=== PATIENT | female | born 1945 | race Caucasian/White ===

== ENCOUNTER 2016-08-22 09:47 | Inpatient (IN) | payer OTHER, MEDICARE ==
[~2016-08-22] VITALS: Ht 157.5 cm; Wt 51.0 kg
[~2016-08-22 09:47] MED LIST: CALC1TAB26 PO; CYAN1000P IM; D32000CA PO; MAGN400T PO; METO25CR PO; PHEN100 PO; POTA-267 PO; ST J81CH PO
[2016-08-22 09:49] VITALS: BP 134/97; PULSE 101; RESP 15; TEMP 97.8; O2SAT 98
[2016-08-22] MEDS ORDERED: PANTOPRAZOLE SODIUM 40 MG VIAL IVP ONE (10:45)
[2016-08-22] MEDS ORDERED: MORPHINE SULFATE 4 MG/ML INJ IV PUSH ONE (10:45)
[2016-08-22] MEDS ORDERED: ONDANSETRON HCL 4 MG/2 ML VIAL IVP ONE (10:45)
[2016-08-22] MEDS: SODIUM CHLOR 0.9% 1000 ML INJ 1,000 ML IV SCH ×3 (11:00→17:00)
[2016-08-22 11:03] VITALS: RESP 18; O2SAT 98
[2016-08-22 11:10] LABS: AUTOMATED NEUTROPHIL # 5.6 TH/MM3 (1.8-7.7); BASOPHIL % 0.4 % (0.0-2.0); EOSINOPHIL % 0.5 % (0.0-4.0); HEMATOCRIT 36.4 % (35.0-46.0); HEMO FLAGS DIFF FINAL; LYMPH % 26.7 % (9.0-44.0); LYMPHOCYTE # 2.3 TH/MM3 (1.0-4.8); MEAN CELL VOLUME 99.1 FL (80.0-100.0); MEAN CORPUSCULAR HEMOGLOBIN 32.6 PG (27.0-34.0); MEAN CORPUSCULAR HGB CONC 32.8 % (32.0-36.0); MONO % 6.5 % (0.0-8.0); NEUT % 65.9 % (16.0-70.0); PLATELET COUNT 367 TH/MM3 (150-450); RED BLOOD COUNT 3.67 MIL/MM3 (4.00-5.30); RED CELL DISTRIBUTION WIDTH 14.5 % (11.6-17.2); WHITE BLOOD COUNT 8.5 TH/MM3 (4.0-11.0)
[2016-08-22 12:00] LABS: PROTHROMBIN TIME - PATIENT 10.6 SEC (9.8-11.6)
[2016-08-22 12:04] LABS: APTT (PATIENT) 27.1 SEC (24.3-30.1)
[2016-08-22 12:07] LABS: BLOOD, URINE NEG (NEG); GLUCOSE,URINE NEG (NEG); KETONE, URINE NEG (NEG); NITRITE,URINE NEG (NEG); URINE COLOR LIGHT-YELLOW (YELLW/STRAW)
[2016-08-22 12:08] LABS: COMMENT (UR) CULT NOT INDICATED; CULTURE IF INDICATED CULT NOT INDICATED
[2016-08-22 12:17] LABS: ALKALINE PHOSPHATASE 89 U/L (45-117)
[2016-08-22 13:31] LABS: TOTAL BILIRUBIN ADULT 0.4 MG/DL (0.2-1.0)
[2016-08-22 13:36] LABS: ALT (GPT) 13 U/L (10-53); AST (GOT) 37 U/L (15-37); BLOOD UREA NITROGEN 12 MG/DL (7-18); CHLORIDE 110 MEQ/L (98-107); GLOMERULAR FILTRATION RATE 66 ML/MIN (>89); SODIUM (NA) 142 MEQ/L (136-145)
[2016-08-22 13:37] LABS: POTASSIUM 5.6 MEQ/L (3.5-5.1)
[2016-08-22 14:22] VITALS: BP 101/59; PULSE 93; RESP 18; O2SAT 95
[2016-08-22 14:27] LABS: ANION GAP 9 MEQ/L (5-15)
[2016-08-22] MEDS ORDERED: IOHEXOL 350 MG/ML 10 ML VIAL (for RAD DIAG) IV ONE (14:42)
--- NOTE | 2016-08-22 14:55 | RADRPT ---
EXAM DATE/TIME: 08/22/2016 14:28 [place] COMPARISON: CHEST SINGLE AP, February 18, 2015, 16:58. INDICATIONS : Diffuse abdominal pain. History of adrenal mass. IV CONTRAST: 93 cc Omnipaque 350 (iohexol) ORAL CONTRAST: Prescribed oral contrast ingested. RADIATION DOSE: 7.70 CTDIvol (mGy) MEDICAL HISTORY : None SURGICAL HISTORY : Hysterectomy. Cholecystectomy. ENCOUNTER: Initial ACUITY: 3 days PAIN SCALE: 8/10 LOCATION: Bilateral lower quadrant TECHNIQUE: Volumetric scanning of the abdomen and pelvis was performed. Using automated exposure control and ad justment of the mA and/or kV according to patient size, radiation dose was kept as low as reasonably achievable to obtain optimal diagnostic quality images. FINDINGS: LOWER LUNGS: Left lower lobe medial opacity. Small left pleural effusion. LIVER: Homogeneous density without lesion. There is no dilation of the biliary tree. No calcified gallston es. SPLEEN: Normal size without lesion. PANCREAS: Within normal limits. KIDNEYS: Normal in size and shape. There is no mass, stone or hydronephrosis. Multiple low-density renal lesi ons greater than left likely cysts. ADRENAL GLANDS: 2.2 x 1.7 cm left adrenal mass. Right adrenal gland normal. VASCULAR: There is no aortic aneurysm. BOWEL/MESENTERY: Evidence of previous bowel surgery. There is wall thickening involving bowel loops. Transverse colon. There is also mild wall thickening within descending and sigmoid colon. No perforation or significan t inflammatory changes. There is no free intraperitoneal air or fluid. ABDOMINAL WALL: Within normal limits. RETROPERITONEUM: There is no lymphadenopathy. BLADDER: No wall thickening or mass. REPRODUCTIVE: Within normal limits. Uterus not seen. INGUINAL: There is no lymphadenopathy or hernia. MUSCULOSKELETAL: Within normal limits for patient age. CONCLUSION: 1. Left basilar density and small left pleural effusion. 2. Left adrenal mass measures 2.2 x 1.7 cm cannot be classified as a typical adrenal adenoma. 3. Wall thickening throughout the colon likely colitis. Evidence of previous bowel surgery. 1. Shay Yao MD on August 22, 2016 at 14:49 Board Certified Radiologist. This report was verified electronically.
--- NOTE | 2016-08-22 15:47 | PD ---
HPI Chief Complaint: Abdominal Pain Time Seen by Provider: 10:28 Travel History International Travel<30 days: No Contact w/Intl Traveler<30days: No Traveled to known affect area: No History of Present Illness HPI 71-year-old female complains of abdominal pain. Patient states that the pain started 4 days ago. Patient states that the pain is sharp and constant pain diffuse over the abdomen. Patient denies any pain radiation. Patient denies any nausea vomiting diarrhea. Patient denies any dysuria or frequency. Patient denies any fever chills. Patient has history of metastatic non-small cell lung CA. Patient receive radiation and chemotherapy in 2013. Patient developed brain metastasis right parietal region which was resected and postop SRS therapy in 2014. Patient was found to have new enlarged left adrenal gland recently and had a PET scan done. Patient also developed seizure and on Dilantin. Patient status post coronary resection secondary to Crohn's disease and hysterectomy. PFSH Past Medical History Cancer: Yes (LUNG) Cardiovascular Problems: Yes (IRREGULAR HEART BEAT) Chemotherapy: Yes Diabetes: No Endocrine: No Gastrointestinal Disorders: Yes (HX OF CHRON'S DISEASE) Genitourinary: No Hepatitis: No Hiatal Hernia: No Immune Disorder: No Implanted Vascular Access Dvce: Yes (POWER PORT) Medical other: Yes (ANEMIA) Musculoskeletal: Yes (SOME MINOR BACK PROBLEMS, ARTHRITIS IN HANDS) Neurologic: No Psychiatric: No Reproductive: No Respiratory: Yes (RECENT PNEUMOTHORAX 01/2013,PNEUMOTHORAX 1979 CENTRAL LINE INSERTION.) Immunizations Current: Yes (TELEPHONE INTERVIEW) Seizures: Yes (1ST SEIZURE YESTERDAY) Thyroid Disease: No Tetanus Vaccination: < 5 Years Past Surgical History Abdominal Surgery: Yes (PARTIAL COLECTOMY X 2(1977, 1979), REPAIR COLAPSED COLON 1987) Body Medical Devices: DENTAL IMPLANTS X 3 Eye Surgery: Yes (CATARACT BILATERAL 2011, 2012,MACULAR HOLE REPAIRED R EYE 2012) Gynecologic Surgery: Yes (HYSTERECTOMY) Hysterectomy: Yes Joint Replacement: No Neurologic Surgery: Yes (BRAIN TUMOR REMOVED 02/2015) Pacemaker: No Other Surgery: Yes Social History Alcohol Use: No Tobacco Use: No Substance Use: No Allergies-Medications (Allergen,Severity, Reaction): Coded Allergies: Penicillin (Unverified Allergy, Severe, SWELLING, 08/22/16) Reported Meds & Prescriptions Reported Meds & Active Scripts Active Dilantin 100 Mg Kapseals (Phenytoin Sodium) 100 Mg Caper 100 Mg PO Q8HR Reported Aspirin 81 mg chewable (Aspirin) 81 Mg Chw 81 Mg PO DAILY D3 (Cholecalciferol) 2,000 Unit Cap 2,000 Unit PO DAILY Calcium 600+D3 (Calcium Carbonate-Vitamin D) 1 Tab Tab 1 Tab PO Metoprolol Succinate ER 25 mg (Metoprolol Succinate) 25 Mg Tab 25 Mg PO DAILY Vitamin B12 (Cyanocobalamin) 1,000 Mcg/Ml Inj 1,200 Mcg IM Klor-Con 10 (Potassium Chloride) 10 Meq Tab 10 Meq PO Mag-Ox 400 (Magnesium Oxide) 400 Mg Tab 400 Mg PO DAILY 30 Days Review of Systems General / Constitutional: No: Fever Eyes: No: Visual changes HENT: No: Headaches Cardiovascular: No: Chest Pain or Discomfort Respiratory: No: Shortness of Breath Gastrointestinal: Positive: Abdominal Pain Genitourinary: No: Dysuria Musculoskeletal: No: Pain Skin: No Rash Neurologic: No: Weakness Psychiatric: No: Depression Endocrine: No: Polydipsia Hematologic/Lymphatic: No: Easy Bruising Physical Exam Narrative GENERAL: Well-nourished, well-developed patient. SKIN: Warm and dry. HEAD: Normocephalic. EYES: No scleral icterus. No injection or drainage. NECK: Supple, trachea midline. No JVD or lymphadenopathy. CARDIOVASCULAR: Regular rate and rhythm without murmurs, gallops, or rubs. RESPIRATORY: Breath sounds equal bilaterally. No accessory muscle use. GASTROINTESTINAL: Abdomen soft, nondistended. Patient has moderate diffuse tenderness over the abdomen. No rebound tenderness. No mass. MUSCULOSKELETAL: No cyanosis, or edema. BACK: Nontender without obvious deformity. No CVA tenderness. Neurologic exam normal. Data Data Last Documented VS Vital Signs Date Time Temp Pulse Resp B/P Pulse Ox O2 Delivery O2 Flow Rate FiO2 08/22/16 14:22 93 18 101/59 95 Room Air 08/22/16 09:49 97.8 Orders Complete Blood Count With Diff (08/22/16 10:35) Comprehensive Metabolic Panel (08/22/16 10:35) Lipase (08/22/16 10:35) Prothrombin Time / Inr (Pt) (08/22/16 10:35) Act Partial Throm Time (Ptt) (08/22/16 10:35) Urinalysis - C+S If Indicated (08/22/16 10:35) Ct Abd/Pel W Iv Contrast(Rout) (08/22/16 10:35) Iv Access Insert/Monitor (08/22/16 10:35) Ecg Monitoring (08/22/16 10:35) Oximetry (08/22/16 10:35) Morphine Inj (Morphine Inj) (08/22/16 10:45) Ondansetron Inj (Zofran Inj) (08/22/16 10:45) Pantoprazole Inj (Protonix Inj) (08/22/16 10:45) Sodium Chlor 0.9% 1000 Ml Inj (Ns 1000 M (08/22/16 10:35) Iohexol 350 Inj (Omnipaque 350 Inj) (08/22/16 14:42) Labs Laboratory Tests Test 08/22/16 08/22/16 08/22/16 08/22/16 10:12 11:32 11:55 12:45 White Blood Count 8.5 TH/MM3 Red Blood Count 3.67 MIL/MM3 Hemoglobin 11.9 GM/DL Hematocrit 36.4 % Mean Corpuscular Volume 99.1 FL Mean Corpuscular Hemoglobin 32.6 PG Mean Corpuscular Hemoglobin 32.8 % Concent Red Cell Distribution Width 14.5 % Platelet Count 367 TH/MM3 Mean Platelet Volume 8.1 FL Neutrophils (%) (Auto) 65.9 % Lymphocytes (%) (Auto) 26.7 % Monocytes (%) (Auto) 6.5 % Eosinophils (%) (Auto) 0.5 % Basophils (%) (Auto) 0.4 % Neutrophils # (Auto) 5.6 TH/MM3 Lymphocytes # (Auto) 2.3 TH/MM3 Monocytes # (Auto) 0.6 TH/MM3 Eosinophils # (Auto) 0.0 TH/MM3 Basophils # (Auto) 0.0 TH/MM3 CBC Comment DIFF FINAL Differential Comment Prothrombin Time 10.6 SEC Prothromb Time International 1.0 RATIO Ratio Activated Partial 27.1 SEC Thromboplast Time Urine Color LIGHT-YELLOW Urine Turbidity CLEAR Urine pH 5.0 Urine Specific [place] 1.007 Urine Protein NEG mg/dL Urine Glucose (UA) NEG mg/dL Urine Ketones NEG mg/dL Urine Occult Blood NEG Urine Nitrite NEG Urine Bilirubin NEG Urine Urobilinogen LESS THAN 2.0 MG/DL Urine Leukocyte Esterase NEG Urine RBC LESS THAN 1 /hpf Urine WBC LESS THAN 1 /hpf Microscopic Urinalysis Comment CULT NOT INDICATED Sodium Level 142 MEQ/L Potassium Level 5.6 MEQ/L Chloride Level 110 MEQ/L Carbon Dioxide Level 23.0 MEQ/L Anion Gap 9 MEQ/L Blood Urea Nitrogen 12 MG/DL Creatinine 0.84 MG/DL Estimat Glomerular Filtration 66 ML/MIN Rate Random Glucose 77 MG/DL Calcium Level 8.3 MG/DL Total Bilirubin 0.4 MG/DL Aspartate Amino Transf 37 U/L (AST/SGOT) Alanine Aminotransferase 13 U/L (ALT/SGPT) Alkaline Phosphatase 89 U/L Total Protein 6.6 GM/DL Albumin 3.0 GM/DL Lipase 87 U/L [facility] Medical Decision Making Medical Screen Exam Complete: Yes Emergency Medical Condition: Yes Interpretation(s) [address] scan abdomen pelvis shows left basilar density and small left pleural effusion. Left adrenal mass. Wall thickening throughout the colon likely colitis. CBC within normal limit. CMP with potassium high 0.6. Hemolyzed specimen. UA is negative. Differential Diagnosis Differential diagnosis including gastritis, PUD, appendicitis, cholecystitis, colitis, UTI, pyelonephritis, nephrolithiasis. Narrative Course 71-year-old female with abdominal pain. History of metastatic lung cancer. History of left adrenal mass. Normal saline solution 100 cc an hour. Levaquin 750 mg IV. Flagyl 500 mg IV. Diagnosis Primary Impression: Colitis Additional Impressions: Adrenal mass, left Metastatic lung cancer (metastasis from lung to other site) Qualified Code: C34.90 - Metastatic lung cancer (metastasis from lung to other site), unspecified laterality Admitting Information Admitting Physician Requests: Admit Salvador Gale MD Aug 22, 2016 15:47
[2016-08-22 15:59] VITALS: BP 102/60; PULSE 93; RESP 18; O2SAT 95
[2016-08-22] MEDS ORDERED: LEVOFLOXACIN 750 MG PREMIX INJ 150 ML IV ONE (16:00)
[2016-08-22] MEDS ORDERED: metroNIDAZOLE 500 MG INJ 100 ML IV ONE (16:00)
[2016-08-22] MEDS ORDERED: ACETAMINOPHEN 325 MG TAB PO PRN (16:15)
[2016-08-22] MEDS ORDERED: ONDANSETRON HCL 4 MG/2 ML VIAL IV PUSH PRN (16:15)
[2016-08-22] MEDS ORDERED: ACETAMINOPHEN/HYDROcodone 325 MG/5 MG TAB PO PRN ×2 (16:45)
[2016-08-22] MEDS ORDERED: HYDROmorphone HCL PF 1 MG/ML VIAL IV PUSH PRN (16:45)
--- NOTE | 2016-08-22 16:49 | HHI.HP ---
[facility] Greg Dickinson MD Admission Diagnosis colitis. Adrenal mass. Metastatic lung CA. Diagnoses: (1) Colitis Diagnosis: Principal Chief Complaint: abdominal pain Travel History International Travel<30 Days: No Contact w/Intl Traveler <30 Da: No Traveled to Known Affected Are: No History of Present Illness patient is a pleasant 71 y/o female who presented to ER with abdominal pain. she says that the pain started tow-three weeks ago and gradually got worse to the extent that she decided to come to ER. pain is more or less generalized although it's more prominent in RLQ. she denies fever, chills , nausea or vomiting. she has diarrhea but she says that ' this is normal'. of note she underwent combined radiation treatment and chemotherapy for a non-small cell lung cancer being completed in July of 2013. 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 This was resected .she was found to have an adrenal mass in recent PET scan for which she's being followed up by her radiation oncology. Review of Systems Constitutional: DENIES: Fever, Weight loss, Chills, Night Sweats Eyes: DENIES: Blurred vision, Diplopia, Vision loss, Double Vision Ears, nose, mouth, throat: DENIES: Tinnitus, Vertigo, Throat pain, Epistaxis Respiratory: DENIES: Apneas, Cough, Snoring, Wheezing, Hemoptysis, Sputum production, Shortness of breath Cardiovascular: DENIES: Chest pain, Palpitations, Syncope, Dyspnea on Exertion , PND, Lower Extremity Edema, Orthopnea, Claudication Gastrointestinal: COMPLAINS OF: Abdominal pain, DENIES: Black stools, Bloody stools, Constipation, Diarrhea, Nausea, Vomiting, Difficulty Swallowing, Anorexia Genitourinary: DENIES: Urinary frequency, Urgency, Hematuria, Dysuria Musculoskeletal: DENIES: Joint pain, Muscle aches, Stiffness, Joint Swelling Integumentary: DENIES: Rash Neurologic: DENIES: Abnormal gait, Headache, Localized weakness, Paresthesias, Seizures, Speech Problems, Tremor, Poor Balance Psychiatric: DENIES: Anxiety, Confusion, Mood changes, Depression, Hallucinations, Agitation, Suicidal Ideation, Homicidal Ideation, Delusions Past Family Social History Past Medical History Crohn's disease lung cancer with brain/ adrenal mets Past Surgical History colon resection hysterectomy eye surgery Reported Medications Aspirin 81 mg chewable (Aspirin) 81 Mg Chw 81 Mg PO DAILY D3 (Cholecalciferol) 2,000 Unit Cap 2,000 Unit PO DAILY Calcium 600+D3 (Calcium Carbonate-Vitamin D) 1 Tab Tab 1 Tab PO Metoprolol Succinate ER 25 mg (Metoprolol Succinate) 25 Mg Tab 25 Mg PO DAILY Vitamin B12 (Cyanocobalamin) 1,000 Mcg/Ml Inj 1,200 Mcg IM Klor-Con 10 (Potassium Chloride) 10 Meq Tab 10 Meq PO Mag-Ox 400 (Magnesium Oxide) 400 Mg Tab 400 Mg PO DAILY 30 Days Allergies: Coded Allergies: Penicillin (Unverified Allergy, Severe, SWELLING, 08/22/16) Active Ordered Medications Current Medications Morphine Sulfate (Morphine Inj) 2 mg ONCE ONCE IV PUSH Last administered on 11:00; Start 08/22/16 at 10:45; Stop 08/22/16 at 10:46; Status DC Ondansetron HCl (Zofran Inj) 4 mg ONCE ONCE IVP Last administered on 11:00; Start 08/22/16 at 10:45; Stop 08/22/16 at 10:46; Status DC Pantoprazole Sodium 40 mg 40 mg ONCE ONCE IVP Last administered on 08/22/16 11:00; Start 08/22/16 at 10:45; Stop 08/22/16 at 10:46; Status DC Sodium Chloride (NS 1000 ml Inj) 1,000 ml @ 125 mls/hr Q8H IV Last administered on 08/22/16 15:56; Start 08/22/16 at 10:35; Stop 08/22/16 at 16:06 ; Status DC Iohexol 92 ml 92 ml STK-MED ONCE IV Last administered on 08/22/16 14:42; Start 08/22/16 at 14:42; Stop 08/22/16 at 14:43; Status DC Levofloxacin/ Dextrose 150 ml @ 100 mls/hr ONCE ONCE IV Last administered on 08/22/16 15:55; Start 08/22/16 at 16:00; Stop 08/22/16 at 17:29 Metronidazole (Flagyl 500 Mg Inj) 100 ml @ 100 mls/hr ONCE ONCE IV Last administered on 08/22/16t 15:58; Start 08/22/16 at 16:00; Stop 08/22/16 at 16:59 Ondansetron HCl (Zofran Inj) 4 mg Q8HR PRN IV PUSH NAUSEA; Start 08/22/16 at 16 :15 Acetaminophen 650 mg 650 mg Q4H PRN PO FEVER; Start 08/22/16 at 16:15 Sodium Chloride (NS 1000 ml Inj) 1,000 ml @ 100 mls/hr Q10H IV ; Start at 17:00 Social History no smoking or drinking. Physical Exam Vital Signs Vital Signs Date Time Temp Pulse Resp B/P Pulse Ox O2 Delivery O2 Flow Rate FiO2 08/22/16 15:59 93 18 102/60 95 Room Air 08/22/16 14:22 93 18 101/59 95 Room Air 08/22/16 11:03 18 98 Room Air 08/22/16 09:49 97.8 101 15 134/97 98 Physical Exam GENERAL: This is a well-nourished, well-developed patient, in no apparent distress. SKIN: No rashes, ecchymoses or lesions. Cool and dry. HEAD: Atraumatic. Normocephalic. No temporal or scalp tenderness. EYES: Pupils equal round and reactive. Extraocular motions intact. No scleral icterus. No injection or drainage. ENT: Nose without bleeding, purulent drainage or septal hematoma. Throat without erythema, tonsillar hypertrophy or exudate. Uvula midline. Airway patent. NECK: Trachea midline. No JVD or lymphadenopathy. Supple, nontender, no meningeal signs. CARDIOVASCULAR: Regular rate and rhythm without murmurs, gallops, or rubs. RESPIRATORY: Clear to auscultation. Breath sounds equal bilaterally. No wheezes , rales, or rhonchi. GASTROINTESTINAL: Abdomen soft, mild RLQ tenderness, nondistended. No hepato- splenomegaly, or palpable masses. No guarding. MUSCULOSKELETAL: Extremities without clubbing, cyanosis, or edema. No joint tenderness, effusion, or edema noted. No calf tenderness. Negative Homans sign bilaterally. NEUROLOGICAL: Awake and alert. Cranial nerves II through XII intact. Motor and sensory grossly within normal limits. Five out of 5 muscle strength in all muscle groups. Normal speech. Laboratory Laboratory Tests Test 08/22/16 08/22/16 08/22/16 08/22/16 10:12 11:32 11:55 12:45 White Blood Count 8.5 Red Blood Count 3.67 Hemoglobin 11.9 Hematocrit 36.4 Mean Corpuscular Volume 99.1 Mean Corpuscular Hemoglobin 32.6 Mean Corpuscular Hemoglobin 32.8 Concent Red Cell Distribution Width 14.5 Platelet Count 367 Mean Platelet Volume 8.1 Neutrophils (%) (Auto) 65.9 Lymphocytes (%) (Auto) 26.7 Monocytes (%) (Auto) 6.5 Eosinophils (%) (Auto) 0.5 Basophils (%) (Auto) 0.4 Neutrophils # (Auto) 5.6 Lymphocytes # (Auto) 2.3 Monocytes # (Auto) 0.6 Eosinophils # (Auto) 0.0 Basophils # (Auto) 0.0 CBC Comment DIFF FINAL Differential Comment Prothrombin Time 10.6 Prothromb Time International 1.0 Ratio Activated Partial 27.1 Thromboplast Time Urine Color LIGHT-YELLOW Urine Turbidity CLEAR Urine pH 5.0 Urine Specific [place] 1.007 Urine Protein NEG Urine Glucose (UA) NEG Urine Ketones NEG Urine Occult Blood NEG Urine Nitrite NEG Urine Bilirubin NEG Urine Urobilinogen LESS THAN 2.0 Urine Leukocyte Esterase NEG Urine RBC LESS THAN 1 Urine WBC LESS THAN 1 Microscopic Urinalysis Comment CULT NOT INDICATED Sodium Level 142 Potassium Level 5.6 Chloride Level 110 Carbon Dioxide Level 23.0 Anion Gap 9 Blood Urea Nitrogen 12 Creatinine 0.84 Estimat Glomerular Filtration 66 Rate Random Glucose 77 Calcium Level 8.3 Total Bilirubin 0.4 Aspartate Amino Transf 37 (AST/SGOT) Alanine Aminotransferase 13 (ALT/SGPT) Alkaline Phosphatase 89 Total Protein 6.6 Albumin 3.0 Lipase 87 Result Diagram: 08/22/16 1012 08/22/[address] scan; left adrenal mass/ colitis Assessment and Plan Assessment and Plan A/P - colitis with history of Crohn's start on clear liquid diet- continue antibiotics and pain control- will consult colorectal surgery ( being followed up by ). -history of metastatic lung cancer with adrenal mass- being followed up by her radiation oncologist -DVT prophylaxis with SCD's Discussed Condition With ER physician and the patient. Physician Certification 2 Midnight Certification Type: Admission for Inpatient Services Order for Inpatient Services The services are ordered in accordance with Medicare regulations or non- Medicare payer requirements, as applicable. In the case of services not specified as inpatient-only, they are appropriately provided as inpatient services in accordance with the 2-midnight benchmark. Estimated LOS (days): 2 days is the estimated time the patient will need to remain in the hospital, assuming treatment plan goals are met and no additional complications. Post-Hospital Plan: Home Tyree Delatorre MD Aug 22, 2016 16:49
[2016-08-22] MEDS ORDERED: K-TA10TA PO (16:57)
[2016-08-22] MEDS ORDERED: UMEC1AER INH (16:57)
[2016-08-22] MEDS ORDERED: METO25TA3 PO (16:57)
[2016-08-22] MEDS ORDERED: ASPI81TA11 PO (16:57)
[2016-08-22] MEDS ORDERED: CHOL1TAB42 PO (16:57)
[2016-08-22] MEDS ORDERED: ALBUAER3 INH (16:57)
[2016-08-22] MEDS ORDERED: CALTTAB PO (16:57)
[2016-08-22] MEDS ORDERED: LAMO100 PO (16:57)
[2016-08-22] MEDS ORDERED: MAG-TAB2 PO (16:57)
[2016-08-22] MEDS ORDERED: FURO1TAB62 PO (16:57)
[2016-08-22] MEDS ORDERED: LOMO2.5T PO (16:57)
[2016-08-22] MEDS ORDERED: CYAN5000 PO/SL (16:57)
[2016-08-22 17:10] VITALS: BP 104/51; PULSE 90; RESP 16; TEMP 97.2; O2SAT 97
[2016-08-22 20:00] VITALS: BP 112/54; PULSE 95; RESP 16; TEMP 96.3; O2SAT 100
[2016-08-22] MEDS: methylPREDNISolone SOD SUCC 40 MG/1 ML VIAL IVP SCH (20:40)
--- NOTE | 2016-08-22 20:46 | MB ---
cc: ABBIE AWAD M.D., DAVID L. MD DATE OF CONSULTATION: 08/22/2016 REASON FOR CONSULTATION: Crohn's disease HISTORY OF PRESENT ILLNESS: The patient is a 71-year-old woman who has had Crohn's disease for over 30 years. She has had three previous bowel resections and the small bowel is anastomosed to the distal transverse colon. She is followed by Dr. Jesus who has performed colonoscopy approximately a [id number] ago and some disease was noted at the ileocolic anastomosis. She has had flares in the past and has been treated with prednisone. She is not on any colitis medicine currently. In the last four days the patient has noted increased abdominal pain. She has not had nausea or vomiting. She continues to stool with diarrhea as per her norm. She denies any rectal bleeding. PAST HISTORY: Lung cancer treated in 2014 with chemotherapy and radiation. She did develop a solitary brain metastasis treated surgically and just recently was noted to have a left adrenal mass. She is planning to start stereotactic radiation for that lesion. She has not been on chemotherapy recently. PHYSICAL EXAMINATION: Afebrile. Normal vital signs. She is alert, without distress. Abdomen is soft. There is moderate tenderness on the right greater than left. There are no peritoneal signs. LABORATORY DATA: White blood cell count 8000. Hemoglobin 11.9, electrolytes are normal. Chemistries are normal. X-RAYS: CT scanning shows significant thickening of the ileum as it leads into the ileocolic anastomosis. There does not appear to be any significant colonic disease. The ileal thickening is over a long segment. There is no evidence of obstruction. There is no free air, abscess or fluid collections. ASSESSMENT: Crohn's flare with significant ileal disease. PLAN: Recommend IV steroids, antibiotics and Azulfidine. The patient will continue clear liquid diet. MD TWAN Lee/JUANPABLO /8:04 PM /8:15 PM
[2016-08-22] MEDS ORDERED: sulfaSALAzine EC 500 MG TABEC PO SCH (21:00)
[2016-08-22] MEDS: MESALAMINE 250 MG CAP PO SCH (21:30)
[2016-08-22] MEDS: metroNIDAZOLE 500 MG INJ 100 ML IV SCH (23:46)
[2016-08-23] VITALS: BP 99/59; PULSE 80; RESP 16; TEMP 96.1; O2SAT 95
[2016-08-23 03:59] LABS: BICARBONATE 22.3 MEQ/L (21.0-32.0); POTASSIUM 3.7 MEQ/L (3.5-5.1)
[2016-08-23 04:00] VITALS: BP 109/57; PULSE 79; RESP 16; TEMP 97.1; O2SAT 97
[2016-08-23] MEDS: SODIUM CHLOR 0.9% 1000 ML INJ 1,000 ML IV SCH ×2 (04:18→15:28)
--- NOTE | 2016-08-23 07:46 | HHI.PR ---
Subjective Remarks f/u; colitis resting comfortably with no distress. abdominal pain is better. no nausea, vomiting. afebrile. Objective Vitals Vital Signs Date Time Temp Pulse Resp B/P Pulse Ox O2 Delivery O2 Flow Rate FiO2 08/23/16 04:00 97.1 79 16 109/57 97 08/23/16 00:00 96.1 80 16 99/59 95 08/22/16 20:00 96.3 95 16 112/54 100 08/22/16 17:10 97.2 90 16 104/51 97 08/22/16 15:59 93 18 102/60 95 Room Air 08/22/16 14:22 93 18 101/59 95 Room Air 08/22/16 11:03 18 98 Room Air 08/22/16 09:49 97.8 101 15 134/97 98 I/O 08/22/16 08/22/16 08/22/16 08/23/16 08/23/16 08/23/16 07:00 15:00 23:00 07:00 15:00 23:00 Intake Total 600 ml 240 ml Balance 600 ml 240 ml Intake Oral 600 ml 240 ml # Voids 1 1 Result Diagram: 08/22/16 1012 08/23/16 0333 Imaging Last Impressions Abdomen/Pelvis CT 08/22/16 1035 Signed Impressions: Service Date/Time: Monday, August 22, 2016 14:28 - CONCLUSION: 1. Left basilar density and small left pleural effusion. 2. Left adrenal mass measures 2.2 x 1.7 cm cannot be classified as a typical adrenal adenoma. 3. Wall thickening throughout the colon likely colitis. Evidence of previous bowel surgery. 1. Shay Yao MD Objective Remarks GENERAL: This is a well-nourished, well-developed patient, in no apparent distress. CARDIOVASCULAR: Regular rate and regular rhythm without murmurs, gallops, or rubs. RESPIRATORY: Clear to auscultation. Breath sounds equal bilaterally. No wheezes , rales, or rhonchi. GASTROINTESTINAL: Abdomen soft, non-tender, nondistended. Normal, active bowel sounds MUSCULOSKELETAL: Extremities without clubbing, cyanosis, or edema. NEURO: Alert & Oriented x4 to person, place, time, situation. Moves all ext x4 Procedures none Medications and IVs Current Medications Morphine Sulfate (Morphine Inj) 2 mg ONCE ONCE IV PUSH Last administered on 11:00; Start 08/22/16 at 10:45; Stop 08/22/16 at 10:46; Status DC Ondansetron HCl (Zofran Inj) 4 mg ONCE ONCE IVP Last administered on 11:00; Start 08/22/16 at 10:45; Stop 08/22/16 at 10:46; Status DC Pantoprazole Sodium 40 mg 40 mg ONCE ONCE IVP Last administered on 08/22/16 11:00; Start 08/22/16 at 10:45; Stop 08/22/16 at 10:46; Status DC Sodium Chloride (NS 1000 ml Inj) 1,000 ml @ 125 mls/hr Q8H IV Last administered on 08/22/16 15:56; Start 08/22/16 at 10:35; Stop 08/22/16 at 16:06 ; Status DC Iohexol 92 ml 92 ml STK-MED ONCE IV Last administered on 08/22/16 14:42; Start 08/22/16 at 14:42; Stop 08/22/16 at 14:43; Status DC Levofloxacin/ Dextrose 150 ml @ 100 mls/hr ONCE ONCE IV Last administered on 08/22/16 15:55; Start 08/22/16 at 16:00; Stop 08/22/16 at 17:29; Status DC Metronidazole (Flagyl 500 Mg Inj) 100 ml @ 100 mls/hr ONCE ONCE IV Last administered on 08/22/16 15:58; Start 08/22/16 at 16:00; Stop 08/22/16 at 16:59 ; Status DC Ondansetron HCl (Zofran Inj) 4 mg Q8HR PRN IV PUSH NAUSEA Last administered on 08/22/16 20:37; Start 08/22/16 at 16:15 Acetaminophen 650 mg 650 mg Q4H PRN PO FEVER; Start 08/22/16 at 16:15 Sodium Chloride 1,000 ml @ 100 mls/hr Q10H IV Last administered on 08/23/16 04:18; Start 08/22/16 at 17:00 Levofloxacin/ Dextrose 100 ml @ 100 mls/hr Q24H IV ; Start 08/23/16 at 16:00 Metronidazole (Flagyl 500 Mg Inj) 100 ml @ 100 mls/hr Q8H IV Last administered on 08/22/16 23:46; Start 08/23/16 at 00:00 Acetaminophen/ Hydrocodone Bitart ([place] 5-325 Mg) 1 tab Q4H PRN PO PAIN < 5; Start 08/22/16 at 16:45 Acetaminophen/ Hydrocodone Bitart ([place] 5-325 Mg) 2 tab Q4H PRN PO PAIN> 5 Last administered on 08/22/16 17:48; Start 08/22/16 at 16:45 Hydromorphone HCl (Dilaudid Pf Inj) 0.5 mg Q4H PRN IV PUSH BREAKTHROUGH PAIN; Start 08/22/16 at 16:45 Pneumococcal Polyvalent Vaccine (Pneumovax-23 Inj) 25 mcg ONCE ONCE IM ; Start 08/23/16 at 10:00; Stop 08/23/16 at 10:01 Methylprednisolone Sodium Succinate (SoluMEDROL INJ) 40 mg Q12H IVP Last administered on 08/22/16 20:40; Start 08/22/16 at 20:00 Sulfasalazine (Azulfidine Ec) 500 mg QID PO ; Start 08/22/16 at 21:00; Stop at 21:00; Status DC Mesalamine (Pentasa Sr) 500 mg QID PO Last administered on 08/22/16 21:30; Start 08/22/16 at 21:00 A/P Assessment and Plan A/P - colitis / Crohn's flare up- improving on clear liquid diet- continue antibiotics , IV steroids and Mesalamine- continue pain control- colorectal surgery consult appreciated ( being followed up by as outpatient). -history of metastatic lung cancer with adrenal mass- being followed up by her radiation oncologist -seizure disorder ( had brain tumor which was resected) - continue home antiepileptics -history of hypertension/irregular heart beat?? ( patient says that she's never been diagnosed with hypertension or a-fib but she's on metoprolol); hold metoprolol for now due to low-normal BP's- will monitor -DVT prophylaxis with SCD's Tyere Delatorre MD Aug 23, 2016 07:45
[2016-08-23 08:00] VITALS: BP 106/64; PULSE 79; RESP 18; TEMP 97.8; O2SAT 97
[2016-08-23] MEDS ORDERED: ALBUTEROL SULFATE 90 MCG/ACT HFA 8 GM INHALER INH PRN (08:00)
[2016-08-23] MEDS ORDERED: PILL SPLITTER OTHER PRN (08:00)
[2016-08-23] MEDS: methylPREDNISolone SOD SUCC 40 MG/1 ML VIAL IVP SCH ×2 (09:11→20:32)
[2016-08-23] MEDS: metroNIDAZOLE 500 MG INJ 100 ML IV SCH ×2 (09:11→15:35)
[2016-08-23] MEDS: lamoTRIgine 25 MG TAB PO SCH ×2 (09:17→20:33)
[2016-08-23] MEDS: UMECLIDINIUM 62.5 MCG/VILANTEROL 25 MCG INHALER INH SCH (09:17)
[2016-08-23] MEDS: MESALAMINE 250 MG CAP PO SCH ×4 (09:17→20:32)
[2016-08-23] MEDS ORDERED: PNEUMOCOCCAL POLYVALENT INJ 25 MCG/0.5 ML SYR IM ONE (10:00)
[2016-08-23 12:00] VITALS: BP 112/69; PULSE 92; RESP 18; TEMP 98; O2SAT 98
[2016-08-23] MEDS: LEVOFLOXACIN 500 MG PREMIX INJ 100 ML IV SCH (15:35)
[2016-08-23 16:00] VITALS: BP 133/68; PULSE 69; RESP 16; TEMP 97.9; O2SAT 96
[2016-08-23 20:00] VITALS: BP 127/75; PULSE 94; RESP 18; TEMP 98.5; O2SAT 97
--- NOTE | 2016-08-23 22:31 | HHI.PR ---
Subjective Remarks C/R Surg afebrile, VSS lilian PO less pain Objective - Vital Signs Date Time Temp Pulse Resp B/P Pulse Ox O2 Delivery O2 Flow Rate FiO2 08/23/16 20:00 98.5 94 18 127/75 97 08/22/16 15:59 Room Air Result Diagram: 08/22/16 1012 08/23/16 0333 Objective Remarks PE alert Abd - soft, mild tenderness RLQ, no mass A/P Assessment and Plan Imp: better, cont steroids adv diet dc plans Mookie Causey MD Aug 23, 2016 22:31
[2016-08-24] VITALS: BP 134/79; PULSE 101; RESP 18; TEMP 98.1; O2SAT 95
[2016-08-24] MEDS: metroNIDAZOLE 500 MG INJ 100 ML IV SCH ×3 (00:25→15:15)
[2016-08-24 04:00] VITALS: BP 124/62; PULSE 90; RESP 16; TEMP 97.2; O2SAT 96
[2016-08-24] MEDS ORDERED: MESA250 PO (07:14)
[2016-08-24] MEDS ORDERED: PRED20 PO (07:18)
--- NOTE | 2016-08-24 07:53 | HHI.PR ---
Subjective Remarks Pt states she is feeling much better today. Denies any abdominal pain at this time. No nausea or vomiting. she is about to order breakfast. Last BM was last night (she had two yesterday). she is hopeful to go home soon. Objective Vitals Vital Signs Date Time Temp Pulse Resp B/P Pulse Ox O2 Delivery O2 Flow Rate FiO2 08/24/16 04:00 97.2 90 16 124/62 96 08/24/16 00:00 98.1 101 18 134/79 95 08/23/16 20:00 98.5 94 18 127/75 97 08/23/16 16:00 97.9 69 16 133/68 96 08/23/16 12:00 98.0 92 18 112/69 98 08/23/16 08:00 97.8 79 18 106/64 97 I/O 08/23/16 08/23/16 08/23/16 08/24/16 08/24/16 08/24/16 07:00 15:00 23:00 07:00 15:00 23:00 Intake Total 240 ml 840 ml 1080 ml 720 ml Balance 240 ml 840 ml 1080 ml 720 ml Intake Oral 240 ml 840 ml 600 ml 240 ml IV Total 480 ml 480 ml # Voids 1 2 2 1 # Bowel Movements 0 1 Result Diagram: 08/22/16 1012 08/23/16 0333 Imaging Last Impressions Abdomen/Pelvis CT 08/22/16 1035 Signed Impressions: Service Date/Time: Monday, August 22, 2016 14:28 - CONCLUSION: 1. Left basilar density and small left pleural effusion. 2. Left adrenal mass measures 2.2 x 1.7 cm cannot be classified as a typical adrenal adenoma. 3. Wall thickening throughout the colon likely colitis. Evidence of previous bowel surgery. 1. Shay Yao MD Objective Remarks GENERAL: This is a well-nourished, well-developed patient, in no apparent distress. pleasant. CARDIOVASCULAR: Regular rate and regular rhythm without murmurs RESPIRATORY: Clear to auscultation. Breath sounds equal bilaterally. No wheezes GASTROINTESTINAL: Abdomen soft, non-tender, nondistended. no guarding or rebound. Bowel sounds present. MUSCULOSKELETAL: Extremities without edema. NEURO: Alert & Oriented x4 to person, place, time, situation. Moves all ext x4 Procedures none A/P Problem List: (1) Colitis ICD Code: K52.9 Status: Acute Assessment and Plan A/P - colitis / Crohn's flare up- much improved. diet has been advanced to regular diet and IV steroids switched to PO prednisone by surgical team. continue IV levaquin, Mesalamine and pain control- Pt states that she has been having loose stools since 1977 and had 2 BMs yesterday. None this morning so far, monitor as she is on narcotics. Hold off on giving stool softeners for now. Encourage ambulation. - hypocalcemia noted: added tums q12hr and repeat in AM. colorectal surgery following ( being followed up by as outpatient ). -history of metastatic lung cancer with adrenal mass- being followed up by her radiation oncologist -seizure disorder ( had brain tumor which was resected) - continue home antiepileptics -history of hypertension/irregular heart beat?? ( patient says that she's never been diagnosed with hypertension or a-fib but she's on metoprolol); hold metoprolol for now due to low-normal BP's- will monitor. Resume as needed. -DVT prophylaxis with SCD's Discharge Planning Diet has been advanced this morning, monitor po intake and awaiting final recs from surgical team Anticipate discharge in 1-2 days. Tammy Hardy MD Aug 24, 2016 07:53
[2016-08-24] MEDS ORDERED: DOCUSATE SODIUM 50 MG/SENNA 8.6 MG TAB PO PRN (08:00)
[2016-08-24] MEDS: SODIUM CHLOR 0.9% 1000 ML INJ 1,000 ML IV SCH (08:08)
[2016-08-24 08:12] VITALS: BP 149/69; PULSE 90; RESP 16; TEMP 97; O2SAT 97
[2016-08-24] MEDS ORDERED: POLYETHYLENE GLYCOL 17 GM PKG PO SCH (09:00)
[2016-08-24] MEDS: UMECLIDINIUM 62.5 MCG/VILANTEROL 25 MCG INHALER INH SCH (09:00)
[2016-08-24] MEDS: MESALAMINE 250 MG CAP PO SCH ×4 (09:04→19:39)
[2016-08-24] MEDS: CALCIUM CARBONATE 500 MG CHEWABLE TAB CHEW SCH ×2 (09:04→19:40)
[2016-08-24] MEDS: lamoTRIgine 25 MG TAB PO SCH ×2 (09:04→19:39)
[2016-08-24] MEDS: predniSONE 5 MG TAB PO SCH (09:05)
[2016-08-24 12:28] VITALS: BP 138/74; PULSE 93; RESP 16; TEMP 97.2; O2SAT 95
[2016-08-24 16:00] VITALS: BP 161/74; PULSE 93; RESP 16; TEMP 97; O2SAT 95
[2016-08-24] MEDS: LEVOFLOXACIN 500 MG PREMIX INJ 100 ML IV SCH (16:11)
--- NOTE | 2016-08-24 20:37 | HHI.PR ---
Subjective Remarks C/R Surg afebrile, VSS lilian PO less pain +stools Objective - Vital Signs Date Time Temp Pulse Resp B/P Pulse Ox O2 Delivery O2 Flow Rate FiO2 08/24/16 16:00 97.0 93 16 161/74 95 08/22/16 15:59 Room Air Result Diagram: 08/22/16 1012 08/23/16 0333 Objective Remarks PE alert Abd - soft, mild tenderness RLQ, no mass A/P Assessment and Plan Imp: better, cont steroids adv diet dc plans Mookie Causey MD Aug 24, 2016 20:37
[2016-08-25] VITALS: BP 146/63; PULSE 80; RESP 18; TEMP 98.8; O2SAT 97
[2016-08-25] MEDS: metroNIDAZOLE 500 MG INJ 100 ML IV SCH ×2 (00:39→09:36)
[2016-08-25] MEDS: SODIUM CHLOR 0.9% 1000 ML INJ 1,000 ML IV SCH (02:53)
[2016-08-25 04:00] VITALS: BP 104/57; PULSE 78; RESP 18; TEMP 96.4; O2SAT 97
--- NOTE | 2016-08-25 07:38 | HHI.PR ---
Subjective Remarks Pt feels so much better. Tolerating her diet. Had 2 BMs, no abdominal pain. Would like to go home today. No CP/SOB/N/V Objective Vitals Vital Signs Date Time Temp Pulse Resp B/P Pulse Ox O2 Delivery O2 Flow Rate FiO2 08/25/16 04:00 96.4 78 18 104/57 97 08/25/16 00:00 98.8 80 18 146/63 97 08/24/16 16:00 97.0 93 16 161/74 95 08/24/16 12:28 97.2 93 16 138/74 95 08/24/16 08:12 97.0 90 16 149/69 97 I/O 08/24/16 08/24/16 08/24/16 08/25/16 08/25/16 08/25/16 07:00 15:00 23:00 07:00 15:00 23:00 Intake Total 720 ml 720 ml 480 ml 960 ml Balance 720 ml 720 ml 480 ml 960 ml Intake Oral 240 ml 720 ml 480 ml IV Total 480 ml 480 ml 480 ml # Voids 1 2 3 # Bowel Movements 2 Result Diagram: 08/22/16 1012 08/23/16 0333 Imaging Last Impressions Abdomen/Pelvis CT 08/22/16 1035 Signed Impressions: Service Date/Time: Monday, August 22, 2016 14:28 - CONCLUSION: 1. Left basilar density and small left pleural effusion. 2. Left adrenal mass measures 2.2 x 1.7 cm cannot be classified as a typical adrenal adenoma. 3. Wall thickening throughout the colon likely colitis. Evidence of previous bowel surgery. 1. Shay Yao MD Objective Remarks GENERAL: This is a well-nourished, well-developed patient, in no apparent distress. pleasant. CARDIOVASCULAR: Regular rate and regular rhythm without murmurs RESPIRATORY: Clear to auscultation. Breath sounds equal bilaterally. No wheezes GASTROINTESTINAL: Abdomen soft, non-tender, nondistended. Bowel sounds present. MUSCULOSKELETAL: Extremities without edema. Moves all ext x4 Procedures none A/P Problem List: (1) Colitis ICD Code: K52.9 Status: Acute Assessment and Plan A/P - colitis / Crohn's flare up- much improved. on a regular diet and tolerating it well. IV steroids switched to PO prednisone by surgical team. continue IV levaquin, Mesalamine and pain control- Pt states that she has been having loose stools since 1977. Hold off on giving stool softeners for now. Encourage ambulation. - hypocalcemia noted: on tums q12hr and repeat Ca level shows resolution colorectal surgery following ( being followed up by as outpatient ). -history of metastatic lung cancer with adrenal mass- being followed up by her radiation oncologist -seizure disorder ( had brain tumor which was resected) - continue home antiepileptics -history of hypertension/irregular heart beat?? ( patient says that she's never been diagnosed with hypertension or a-fib but she's on metoprolol); hold metoprolol for now due to low-normal BP's- will monitor. Resume as needed. -DVT prophylaxis with SCD's Discharge Planning awaiting final recs from surgical team for discharge. Tammy Hardy MD Aug 25, 2016 07:38
[2016-08-25 08:00] VITALS: BP 164/72; PULSE 90; RESP 16; TEMP 97.7; O2SAT 99
[2016-08-25] MEDS: lamoTRIgine 25 MG TAB PO SCH (09:35)
[2016-08-25] MEDS: MESALAMINE 250 MG CAP PO SCH (09:35)
[2016-08-25] MEDS: predniSONE 5 MG TAB PO SCH (09:35)
[2016-08-25] MEDS: CALCIUM CARBONATE 500 MG CHEWABLE TAB CHEW SCH (09:35)
[2016-08-25] MEDS: UMECLIDINIUM 62.5 MCG/VILANTEROL 25 MCG INHALER INH SCH (09:36)
[2016-08-25 12:00] VITALS: BP 125/72; PULSE 97; RESP 16; TEMP 97.7; O2SAT 97
--- NOTE | 2016-08-25 12:33 | HHI.DCPOC ---
Discharge Care Plan Diagnosis: (1) Colitis (2) Crohn's colitis Goals to Promote Your Health * To prevent worsening of your condition and complications * To maintain your health at the optimal level Directions to Meet Your Goals Take your medications as prescribed Follow your dietary instruction Follow activity as directed Keep your appointments as scheduled Take your immunizations and boosters as scheduled If your symptoms worsen call your PCP, if no PCP go to Urgent Care Center or Emergency Room Smoking is Dangerous to Your Health. Avoid second hand smoke Call the 24-hour hour crisis hotline for domestic abuse at Tammy Hardy MD Aug 25, 2016 12:33
--- NOTE | 2016-08-25 13:20 | HHI.DS ---
Discharge Summary Admission Date Aug 22, 2016 at 16:16 Discharge Date: Aug 25, 2016 Admitting Diagnosis colitis. Adrenal mass. Metastatic lung CA. (1) Colitis ICD Code: K52.9 Diagnosis: Principal Procedures none Brief History - From Admission patient is a pleasant 71 y/o female who presented to ER with abdominal pain. she says that the pain started tow-three weeks ago and gradually got worse to the extent that she decided to come to ER. pain is more or less generalized although it's more prominent in RLQ. she denies fever, chills , nausea or vomiting. she has diarrhea but she says that ' this is normal'. of note she underwent combined radiation treatment and chemotherapy for a non-small cell lung cancer being completed in July of 2013. 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 This was resected .she was found to have an adrenal mass in recent PET scan for which she's being followed up by her radiation oncology. CBC/BMP: 08/22/16 1012 08/23/16 0333 Significant Findings Laboratory Tests Test 08/23/16 03:33 Estimat Glomerular Filtration 69 ML/MIN (>89) Rate Random Glucose 170 MG/DL (74-106) Calcium Level 7.9 MG/DL (8.5-10.1) PE at Discharge GENERAL: This is a well-nourished, well-developed patient, in no apparent distress. pleasant. CARDIOVASCULAR: Regular rate and regular rhythm without murmurs RESPIRATORY: Clear to auscultation. Breath sounds equal bilaterally. No wheezes GASTROINTESTINAL: Abdomen soft, non-tender, nondistended. Bowel sounds present. MUSCULOSKELETAL: Extremities without edema. Moves all ext x4 Hospital Course - colitis / Crohn's flare up- much improved. on a regular diet and tolerating it well. now on a PO prednisone taper by surgical team. no need for abx per Dr. Causey. script for Mesalamine and prednisone taper in chart. Encouraged ambulation. follow up w in 1- 2 weeks. - hypocalcemia noted: on tums q12hr and repeat Ca level this morning shows resolution -history of metastatic lung cancer with adrenal mass- being followed up by her radiation oncologist. f/u as an outpatient -seizure disorder ( had brain tumor which was resected) - continue home antiepileptics -history of hypertension/irregular heart beat?? ( patient says that she's never been diagnosed with hypertension or a-fib but she's on metoprolol); metoprolol was help while in the hospital due to low BPs but now that has resolved and can resume as an outpatient. Pt Condition on Discharge: Good Discharge Disposition: Discharge Home Discharge Time: <= 30 minutes Discharge Instructions DIET: Follow Instructions for: As Tolerated, No Restrictions Activities you can perform: Regular-No Restrictions Follow up Referrals: Appointment for Follow Up - 2 Weeks with Liza Jesus MD Physician - 1 Week New Medications: Prednisone (Prednisone) 20 Mg Tab 40 MG PO DAILY Take 40 mg (2 tablets) daily for 5 days PRN colitis #30 Ref 0 TAB Mesalamine ER (Pentasa) 250 Mg Caper 500 MG PO QID Colitis #60 Ref 0 CAP Continued Medications: Albuterol 8.5 GM Inh (Proair Hfa 8.5 GM Inh) 90 Mcg/Act Aer 2 PUFF INH Q6H 108 mcg/actuation PRN SHORTNESS OF BREATH #1 Ref [address] (Aspirin EC) 81 Mg Tabdr 81 MG PO DAILY Ref 0 TAB Calcium Carbonate-Cholecalciferol (Caltrate 600+D) 600-800 Mg-Unit Tab 1 TAB PO BID Calcium Supplement Ref 0 TAB Cholecalciferol (Vitamin D-3) 2,000 Unit Tab 2000 UNITS PO DAILY Cyanocobalamin Liq (B-12 Super Strength Liq) 5,000 Mcg/Ml Liq 2500 MCG PO/SL EVERY OTHER DAY Diphenoxylate-Atropine (Lomotil) 2.5-0.025 Mg Tab 2 TAB PO BID PRN DIARRHEA Ref 0 TAB Furosemide (Lasix) 20 Mg Tab 20 MG PO DAILY PRN EDEMA #30 Ref 0 TAB Lamotrigine (Lamictal) 100 Mg Tab 50 MG PO BID Control Seizures #60 Ref 0 TAB Magnesium Oxide (Magox) 200 Mg Tab 100 MG PO DAILY Ref 0 TAB Metoprolol Tartrate (Metoprolol Tartrate) 25 Mg Tab 12.5 MG PO BID #60 Ref 0 TAB Potassium Chloride ER (K-Tab) 10 Meq Tab 10 MEQ PO BID Electrolyte Replacement #30 Ref 0 TAB Umeclidinium-Vilanterol Inh (Anoro Ellipta Inh) 62.5-25 Mcg/Act Aero 1 PUFF INH DAILY COPD #1 Ref 0 INHALER Tammy Hardy MD Aug 25, 2016 13:20
[2016-08-25] MEDS ORDERED: METOPROLOL TARTRATE 25 MG TAB PO SCH (21:00)
== END 2016-08-25 13:18 | disposition home or self-care (01) | DRG 387 ==
LOC: NEPA 09:47 → NEDA 16:16 → HOCA 17:04 → HOCB 18:27 → HOCA 18:32
PROVIDERS: ADMIT Hospitalist; ATTEND Hospitalist
DX: K50.90 Crohn's disease, unspecified, without complications (principal); E83.51 Hypocalcemia; G40.909 Epilepsy, unspecified, not intractable, without status epilepticus; Z85.118 Personal history of other malignant neoplasm of bronchus and lung; Z92.3 Personal history of irradiation; Z92.21 Personal history of antineoplastic chemotherapy; E27.9 Disorder of adrenal gland, unspecified; Z90.49 Acquired absence of other specified parts of digestive tract; Z79.82 Long term (current) use of aspirin; Z23 Encounter for immunization
CPT/HCPCS: 74177; 76937; 80048; 80053; 81001; 82310; 83690; 85025; 85610; 85730; 90732; 96374; 96375; C9113; J1956; J2270; J2405; J2920; J7030; J7512; Q9967

== ENCOUNTER 2018-08-04 08:56 | Inpatient (IN) ==
[2018-08-04] MEDS ORDERED: Pantoprazole Inj 40 MG Vial IV.PUSH ONE (10:10)
[2018-08-04] MEDS ORDERED: Sod Chloride 0.9% Inj 1,000 ML IV.SIG ONE (10:10)
[2018-08-04 10:51] LABS: Baso % (Auto) 0.3 % (0.0-2.0); Eos % (Auto) 0.3 % (0.0-4.0); Hematocrit 28.5 % (35.0-46.0); Hemoglobin 9.3 gm/dL (11.6-15.3); Lymph # (Auto) 1.1 th/mm3 (1.0-4.8); Lymph % (Auto) 14.4 % (9.0-44.0); Mean Corpuscular HGB Conc 32.5 % (32.0-36.0); Mean Corpuscular Hemoglobin 31.5 pg (27.0-34.0); Mean Corpuscular Volume 96.8 fL (80.0-100.0); Mean Platelet Volume 7.7 fL (7.0-11.0); Mono # (Auto) 0.4 th/mm3 (0.0-0.9); Mono % (Auto) 4.5 % (0.0-8.0); Neut # (Auto) 6.4 th/mm3 (1.8-7.7); Neut % (Auto) 80.5 % (16.0-70.0); Platelet Count 315 th/mm3 (150-450); Red Blood Count 2.94 mil/mm3 (4.00-5.30); Red Cell Distribution Width 15.8 % (11.6-17.2); White Blood Count 7.9 th/mm3 (4.0-11.0)
[2018-08-04] MEDS ORDERED: Pantoprazole Inj 80 MG in Sodium Chlor 0.9% Inj 100 ML IV.CONT SCH (11:00)
[2018-08-04 11:02] LABS: Chloride 112 meq/L (98-107); Potassium 4.7 meq/L (3.5-5.1); Sodium 140 meq/L (136-145)
[2018-08-04 11:06] LABS: Albumin 3.2 g/dL (3.4-5.0); Anion Gap 8 meq/L (5-15); Blood Urea Nitrogen 20 mg/dL (7-18); Calcium 8.7 mg/dL (8.5-10.1); Carbon Dioxide 20.5 meq/L (21.0-32.0); Glucose,Random 86 mg/dL (74-106)
[2018-08-04 11:08] LABS: Activated Partial Thrombo Time 23.5 sec (23.4-31.7); Prothrombin Time 10.1 sec (9.8-11.6)
[2018-08-04 11:09] LABS: Alanine Aminotransferase 26 U/L (10-53); Aspartate Aminotransferase 27 U/L (15-37); Glomerular Filtration Rate 40 mL/min (>89)
[2018-08-04 11:11] LABS: Total Protein 6.7 g/dL (6.4-8.2)
[2018-08-04 11:12] LABS: Alkaline Phosphatase 83 U/L (45-117)
--- NOTE | 2018-08-04 12:15 | CT ---
EXAM DATE: 08/04/2018 11:51 AM EST AGE/SEX: 73 years / Female INDICATIONS: Rectal bleeding. CLINICAL DATA: This is the patient's initial encounter. Patient reports that signs and symptoms have been present for 1 day and indicates a pain score of 0/10. MEDICAL/SURGICAL HISTORY: Cardiovascular disease. Chronic obstructive pulmonary disease. Croh n?s disease. Brain cancer. Left adrenal gland cancer. Lung cancer. Hypertension. Craniotomy. Hyste rectomy. Coronary artery stent. ORAL CONTRAST: No oral contrast ingested. RADIATION DOSE: 5.11 CTDI (mGy) COMPARISON: POI, CT ABDOMEN AND PELVIS W/ CONTRAST, 07/16/2018. . TECHNIQUE: Multiple contiguous axial images were obtained through the abdomen and pelvis following b olus infusion of 50 ml Visipaque 320 (iodixanol) nonionic water-soluble contrast as a single exam d ose. No oral contrast ingested. Using automated exposure control and adjustment of the mA and/or kV according to patient size, radiation dose was kept as low as reasonably achievable to obtain optimal diagnostic quality images. DICOM format image data is available electronically for review and compar alannah. FINDINGS: LOWER LUNGS: Stable small left pleural effusion. LIVER: The liver has a homogeneous density without space-occupying lesion. There is no dilation of t he biliary tree. Calcified gallstones in the dependent portion of the gallbladder. SPLEEN: Homogeneous density without enlargement. PANCREAS: Unremarkable without mass or calcification. KIDNEYS: Stable 3 mm nonobstructing calyceal calculus in the superior pole of the right kidney. Stab le 15 mm cyst in the posterior mid left kidney. Kidneys otherwise demonstrate symmetrical enhancement without hydronephrosis. ADRENAL GLANDS: Unremarkable. AORTA: Cynthia-aneurysmal. Diffuse atherosclerotic calcifications. BOWEL/MESENTERY: The bowel loops are grossly unremarkable. The cecum and sigmoid colon have a meghan l configuration. No free fluid or drainable fluid collections. No free air or pneumatosis. Redemonstr ation of surgical features in the posterior right lower quadrant as well as the left lower quadrant. ABDOMINAL WALL: Intact. RETROPERITONEUM: No evidence of adenopathy in the retrocrural, para-aortic, or deep pelvic regions. BLADDER: Contours are smooth. REPRODUCTIVE: Uterus is surgically absent. BONY STRUCTURES: Healed bilateral inferior pubic rami fractures. Osseous structures are otherwise in tact. CONCLUSION: 1. Stable CT examination of the abdomen without interval acute abnormality. 2. Stable small left pleural effusion. 3. Stable 3 mm nonobstructing calyceal calculus in the superior pole of the right kidney. 4. Cholelithiasis. 5. Additional stable ancillary findings, as above. Electronically signed by: Gene Alford MD Board Certified Radiologist 08/04/2018 12:13 PM ISABELL T
--- NOTE | 2018-08-04 13:09 | ED ---
HPI General Chief complaint: GI Bleed Stated complaint: rectal bleeding/on blood thinner x 1 day Time Seen by Provider: 08/04/18 09:51 Source: patient Mode of arrival: ambulatory Limitations: no limitations History of Present Illness HPI narrative: Patient is a 73 year old female who comes in complaining of bloody stool. She says she had two episodes of blood in her stool this morning. She is on Brilinta an Aspirin. She denies any abdominal pain, lightheadedness, chest pain or SOB. She says she has never had this before, but she does have a history of Crohn's disease. She denies any nausea or vomiting. Severity is moderate. Related Data Home Medications Medication Instructions Recorded Confirmed aspirin [Aspir-81] 81 mg PO DAILY 06/18/18 08/04/18 calcium carbonate [Calcium 600] 600 mg PO BID 06/18/18 08/04/18 cholecalciferol (vitamin D3) 2,000 unit PO DAILY 06/18/18 08/04/18 [Vitamin D3] cyanocobalamin (vitamin B-12) 2,500 mcg PO DAILY 06/18/18 08/04/18 [Vitamin B-12] diltiazem HCl 240 mg PO HS 06/18/18 08/04/18 furosemide 20 mg PO DAILY PRN 06/18/18 08/04/18 lamotrigine 25 mg PO DAILY 06/18/18 08/04/18 magnesium oxide [MagOx] 100 mg PO DAILY 06/18/18 08/04/18 nitroglycerin [Nitrostat] 0.4 mg SUBLINGUAL Q5-15M PRN 06/18/18 08/04/18 vitamin E 400 unit PO DAILY 06/18/18 08/04/18 umeclidinium-vilanterol [Anoro 1 inh INHALATION Q24H 08/04/18 08/04/18 Ellipta] Previous Rx's Medication Instructions Recorded atorvastatin 40 mg PO HS #90 tab 06/19/18 ticagrelor [Brilinta] 90 mg PO BID 90 Days #180 tab 06/19/18 Allergies Allergy/AdvReac Type Severity Reaction Status Date / Time penicillin G Allergy Severe SWELLING Verified 08/04/18 09:34 Review of Systems ROS: all other systems reviewed are negative Constitutional Reports chills and Denies fever(s) ENT Denies dizziness Cardiovascular Denies chest pain and Denies dyspnea Respiratory Denies cough and Denies dyspnea Gastrointestinal Denies abdominal pain and Denies vomiting Musculoskeletal Denies myalgias and Denies arthralgias Integumentary/Breasts Denies sores and Denies wounds Neurologic Denies focal weakness and Denies numbness [facility] Medical History Medical History Bilateral cataracts (Acute) Cancer of left adrenal gland (Acute) History of shingles (Acute) Lung cancer (Acute) Macular hole of right eye (Acute) Seizure (Acute) Anxiety (Acute) Aortic valve disease (Acute) Arrhythmia (Acute) Brain cancer (Acute) CKD (chronic kidney disease), stage III (Acute) COPD (chronic obstructive pulmonary disease) (Acute) Crohn's colitis (Acute) Drug dependence (Acute) HTN (hypertension) (Acute) Surgical History Surgical History H/O brain surgery (Acute) H/O hand surgery (Acute) H/O total hysterectomy (Acute) History of carpal tunnel surgery of left wrist (Acute) History of carpal tunnel surgery of right wrist (Acute) Stented coronary artery (Acute) Social History Social History Substance History: No History of Abuse Second Hand Smoke Exposure: No Smoking Status: Former smoker How Often Do You Have a Drink Containing Alcohol: Never Immunization History Tetanus Immunization: <5 Years Exam Narrative Exam Narrative: GENERAL: Awake and alert, in no acute distress. SKIN: Focused skin assessment warm/dry. HEAD: Atraumatic. Normocephalic. EYES: Pupils equal and round. No scleral icterus. No injection or drainage. ENT: Mucous membranes pink and moist. NECK: Trachea midline. No JVD. CARDIOVASCULAR: Regular rate and rhythm. No murmur appreciated. RESPIRATORY: No accessory muscle use. Clear to auscultation. Breath sounds equal bilaterally. GASTROINTESTINAL: Abdomen soft, non-tender, nondistended. MUSCULOSKELETAL: No obvious deformities. No clubbing. No cyanosis. No edema. NEUROLOGICAL: Awake and alert. No obvious cranial nerve deficits. Motor grossly within normal limits. Normal speech. PSYCHIATRIC: Appropriate mood and affect; insight and judgment normal. Procedures Hemaprompt Stool Procedural Steps Taken: specimen placed in appropriate test area, developer placed on specimen and control areas and controls appropriately positive and negative Hemaprompt Stool Result: positive Course Initial Documented Vital Signs Temperature 98.0 F 08/04/18 09:11 Pulse Rate 105 H 08/04/18 09:11 Respiratory Rate 16 08/04/18 09:11 Blood Pressure 100/51 L 08/04/18 09:11 Pulse Oximetry 98 08/04/18 09:11 Last Documented Vital Signs Temperature 98.0 F 08/04/18 09:11 Pulse Rate 82 08/04/18 11:20 Respiratory Rate 18 08/04/18 11:19 Blood Pressure 98/44 L 08/04/18 11:20 Pulse Oximetry 97 08/04/18 10:47 Medical Decision Making MDM Narrative Medical decision making narrative: Patient is a 73 year old female who comes in complaining of blood in her stool. Exam shows stool is black, positive for occult blood. IV established, labs sent. Labs show a Hgb is 9.3. CT abd/pelvis performed shows no acute abnormalities. Given IVF and Protonix. Patient admitted for further management. Medical Screen Exam Complete: Yes Emergency Medical Condition: Yes Differential Diagnosis Differential Diagnosis: GI bleed vs diverticulosis vs diverticulitis vs Crohn's disease Medical Records Medical records reviewed: Yes I reviewed the patient's medical records. Lab Data Lab results reviewed: Yes I reviewed the patient's lab results. Result diagrams: 08/04/18 10:15 08/04/18 10:15 Lab Results 08/04/18 08/04/18 08/04/18 Range/Units 10:15 10:15 10:15 CBC w Diff Auto diff final WBC 7.9 (4.0-11.0) th/mm3 RBC 2.94 L (4.00-5.30) mil/mm3 Hgb 9.3 L (11.6-15.3) gm/dL Hct 28.5 L (35.0-46.0) % MCV 96.8 (80.0-100.0) fL MCH 31.5 (27.0-34.0) pg MCHC 32.5 (32.0-36.0) % RDW 15.8 (11.6-17.2) % Plt Count 315 (150-450) th/mm3 MPV 7.7 (7.0-11.0) fL Neut % (Auto) 80.5 H (16.0-70.0) % Lymph % (Auto) 14.4 (9.0-44.0) % [place] % (Auto) 4.5 (0.0-8.0) % Eos % (Auto) 0.3 (0.0-4.0) % Baso % (Auto) 0.3 (0.0-2.0) % Neut # (Auto) 6.4 (1.8-7.7) th/mm3 Lymph # (Auto) 1.1 (1.0-4.8) th/mm3 [place] # (Auto) 0.4 (0.0-0.9) th/mm3 Eos # (Auto) 0.0 (0.0-0.4) th/mm3 Baso # (Auto) 0.0 (0.0-0.2) th/mm3 WBC Differential . Differential Comment . PT (9.8-11.6) sec INR Ratio APTT (23.4-31.7) sec Sodium 140 (136-145) meq/L Potassium 4.7 (3.5-5.1) meq/L Chloride 112 H (98-107) meq/L Carbon Dioxide 20.5 L (21.0-32.0) meq/L Anion Gap 8 (5-15) meq/L BUN 20 H (7-18) mg/dL Creatinine 1.30 H (0.50-1.00) mg/dL Estimated GFR 40 L (>89) mL/min Random Glucose 86 (74-106) mg/dL Calcium 8.7 (8.5-10.1) mg/dL Total Bilirubin 0.3 (0.2-1.0) mg/dL AST 27 (15-37) U/L ALT 26 (10-53) U/L Alkaline Phosphatase 83 (45-117) U/L Total Protein 6.7 (6.4-8.2) g/dL Albumin 3.2 L (3.4-5.0) g/dL Blood Type A Positive Blood Type Recheck Not needed Antibody Screen Negative 08/04/18 Range/Units 10:30 CBC w Diff WBC (4.0-11.0) th/mm3 RBC (4.00-5.30) mil/mm3 Hgb (11.6-15.3) gm/dL Hct (35.0-46.0) % MCV (80.0-100.0) fL MCH (27.0-34.0) pg MCHC (32.0-36.0) % RDW (11.6-17.2) % Plt Count (150-450) th/mm3 MPV (7.0-11.0) fL Neut % (Auto) (16.0-70.0) % Lymph % (Auto) (9.0-44.0) % [place] % (Auto) (0.0-8.0) % Eos % (Auto) (0.0-4.0) % Baso % (Auto) (0.0-2.0) % Neut # (Auto) (1.8-7.7) th/mm3 Lymph # (Auto) (1.0-4.8) th/mm3 [place] # (Auto) (0.0-0.9) th/mm3 Eos # (Auto) (0.0-0.4) th/mm3 Baso # (Auto) (0.0-0.2) th/mm3 WBC Differential Differential Comment PT 10.1 (9.8-11.6) sec INR 1.0 Ratio APTT 23.5 (23.4-31.7) sec Sodium (136-145) meq/L Potassium (3.5-5.1) meq/L Chloride (98-107) meq/L Carbon Dioxide (21.0-32.0) meq/L Anion Gap (5-15) meq/L BUN (7-18) mg/dL Creatinine (0.50-1.00) mg/dL Estimated GFR (>89) mL/min Random Glucose (74-106) mg/dL Calcium (8.5-10.1) mg/dL Total Bilirubin (0.2-1.0) mg/dL AST (15-37) U/L ALT (10-53) U/L Alkaline Phosphatase (45-117) U/L Total Protein (6.4-8.2) g/dL Albumin (3.4-5.0) g/dL Blood Type Blood Type Recheck Antibody Screen Imaging Data Radiologist's impression: Abdomen/Pelvis CT 08/04/18 10:10 CONCLUSION: 1. Stable CT examination of the abdomen without interval acute abnormality. 2. Stable small left pleural effusion. 3. Stable 3 mm nonobstructing calyceal calculus in the superior pole of the right kidney. 4. Cholelithiasis. 5. Additional stable ancillary findings, as above. Discharge Plan Discharge Disposition Patient Disposition: ED Admit(ED Internal Use Only) Discharge Condition Condition: Stable Discharge Order Discharge Orders: ED Use Only Admit Order (Routine); Ordered 08/04/18 Ordered By: iLa Blas Discharge Details Diagnosis: GI bleed Physicians Team ED Provider: Lia Blas Primary Care Provider: Greg Dickisnon Attending Provider: Shay Zimmer Status ED Status: Left Department Discharge Information Discharge Date/Time: 08/04/18 14:54
[2018-08-04] MEDS ORDERED: Acetaminophen 325 MG Tablet PO PRN (14:58)
[2018-08-04] MEDS ORDERED: Bisacodyl 10 MG Supp RECTAL PRN (14:58)
--- NOTE | 2018-08-04 15:19 | P.HPIM ---
History of Present Illness Primary Care Physician: Greg Dickinson MD Chief Complaint: GI bleeding History of Present Illness: 73 yrs female with a PMH of IBD, s/p WALE to LAD on and currently on ASA/Brilinta was brought to the ED for first time episode x2-3 of bloody stools since this AM. She denies any hemoptysis, hematuria or hematemesis. Patient states she had 3 GI surgeries 2/2 Crohn's disease Crohn's which were performed by Dr. Jesus, colorectal surgeon. H&H on admission was 9.3/28.5, patient currently on PPI drip. She has no chest pain or shortness of breath. Review of Systems Review of Systems: all other systems reviewed are negative PMFSH Medical History Medical History Bilateral cataracts (Acute) Cancer of left adrenal gland (Acute) History of shingles (Acute) Lung cancer (Acute) Macular hole of right eye (Acute) Seizure (Acute) Anxiety (Acute) Aortic valve disease (Acute) Arrhythmia (Acute) Brain cancer (Acute) CKD (chronic kidney disease), stage III (Acute) COPD (chronic obstructive pulmonary disease) (Acute) Crohn's colitis (Acute) Drug dependence (Acute) HTN (hypertension) (Acute) Surgical History Surgical History H/O brain surgery (Acute) H/O hand surgery (Acute) H/O total hysterectomy (Acute) History of carpal tunnel surgery of left wrist (Acute) History of carpal tunnel surgery of right wrist (Acute) Stented coronary artery (Acute) Social History Social History Substance History: No History of Abuse Second Hand Smoke Exposure: No Smoking Status: Former smoker How Often Do You Have a Drink Containing Alcohol: Never Immunization History Tetanus Immunization: <5 Years Hx Influenza Vaccine This Season: Yes Medications and Allergies Allergies Allergy/AdvReac Type Severity Reaction Status Date / Time penicillin G Allergy Severe SWELLING Verified 08/04/18 09:34 Home Medications Medication Instructions Recorded Confirmed Type aspirin [Aspir-81] 81 mg PO DAILY 06/18/18 08/04/18 History calcium carbonate [Calcium 600] 600 mg PO BID 06/18/18 08/04/18 History cholecalciferol (vitamin D3) 2,000 unit PO DAILY 06/18/18 08/04/18 History [Vitamin D3] cyanocobalamin (vitamin B-12) 2,500 mcg PO DAILY 06/18/18 08/04/18 History [Vitamin B-12] diltiazem HCl 240 mg PO HS 06/18/18 08/04/18 History furosemide 20 mg PO DAILY PRN 06/18/18 08/04/18 History lamotrigine 25 mg PO DAILY 06/18/18 08/04/18 History magnesium oxide [MagOx] 100 mg PO DAILY 06/18/18 08/04/18 History nitroglycerin [Nitrostat] 0.4 mg SUBLINGUAL Q5-15M PRN 06/18/18 08/04/18 History vitamin E 400 unit PO DAILY 06/18/18 08/04/18 History umeclidinium-vilanterol [Anoro 1 inh INHALATION Q24H 08/04/18 08/04/18 History Ellipta] Active Medications: Active Medications Acetaminophen (Tylenol) 650 mg PO Q4H PRN PRN Reason: Temp > 100.4 Al Hydroxide/Mg Hydroxide (Milk Of Magnesia Liq) 30 ml PO Q12H PRN PRN Reason: Mild Constipation Bisacodyl (Dulcolax Supp) 10 mg RECTAL DAILY PRN PRN Reason: SEVERE CONSITIPATION Pantoprazole Sodium 80 mg/ (Sodium Chloride) 100 mls @ 10 mls/hr IV.CONT CONT [facility] Last Admin: 08/04/18 11:16 Dose: 10 mls/hr Ondansetron HCl (Zofran Inj) 4 mg IV.PUSH Q6H PRN PRN Reason: NAUSEA OR VOMITING Sodium Chloride (Ns Flush) 2 ml IV.FLUSH PRN PRN PRN Reason: FLUSH AFTER USING IV ACCESS Sodium Chloride (Ns Flush) 2 ml IV.FLUSH PRN PRN PRN Reason: FLUSH AFTER USING IV ACCESS Sodium Chloride (Ns Flush) 2 ml IV.FLUSH BID [facility] Physical Exam Vital signs: Vital Signs 08/04/18 09:11 08/04/18 09:50 08/04/18 10:45 Temperature 98.0 F Pulse Rate 105 H 88 83 Respiratory Rate 16 18 Blood Pressure 100/51 L 98/53 L 90/45 L Pulse Oximetry 98 96 97 08/04/18 10:47 08/04/18 11:19 08/04/18 11:20 Temperature Pulse Rate 87 83 82 Respiratory Rate 18 Blood Pressure 83/49 L 98/44 L Pulse Oximetry 97 Intake & Output 08/03/18 08/04/18 08/04/18 18:59 06:59 18:59 Intake Total 1000 / 1000 Balance 1000 / 1000 Weight 52 kg Intake: IV 1000 / 1000 NS Inj 1,000 ML @ Wide Open IV. 1000 / 1000 SIG BOLUS ONE Rx#:[id number] Other: Date of Last Bowel Movement 08/03/18 Narrative: GENERAL: NAD SKIN: Warm and dry. HEAD: Atraumatic. Normocephalic. EYES: Pupils equal and round. No scleral icterus. No injection or drainage. ENT: No nasal bleeding or discharge. Mucous membranes pink and moist. NECK: Trachea midline. No JVD. CARDIOVASCULAR: Regular rate and rhythm. RESPIRATORY: No accessory muscle use. Clear to auscultation. Breath sounds equal bilaterally. GASTROINTESTINAL: Abdomen soft, non-tender, nondistended. Hepatic and splenic margins not palpable. MUSCULOSKELETAL: Extremities without clubbing, cyanosis, or edema. No obvious deformities. NEUROLOGICAL: Awake and alert. No obvious cranial nerve deficits. Motor grossly within normal limits. Five out of 5 muscle strength in the arms and legs. Normal speech. PSYCHIATRIC: Appropriate mood and affect; insight and judgment normal. Results Labs CBC & Chem 7: 08/04/18 10:15 08/04/18 10:15 Imaging Impressions Abdomen/Pelvis CT 08/04/18 10:10 CONCLUSION: 1. Stable CT examination of the abdomen without interval acute abnormality. 2. Stable small left pleural effusion. 3. Stable 3 mm nonobstructing calyceal calculus in the superior pole of the right kidney. 4. Cholelithiasis. 5. Additional stable ancillary findings, as above. Caprini VTE Risk Assessment Caprini VTE Risk Assessment: Moderate/High Risk (score >= 2) VTE Pharmacological Exception Reason: Active bleeding Caprini Risk Assessment Model: Point Value = 1 Point Value = 2 Point Value = 3 Point Value = 5 Age 41-60 Minor surgery BMI > 25 kg/m2 Swollen legs Varicose veins or History of unexplained or recurrent spontaneous Oral contraceptives or hormone replacement Sepsis (< 1 month) Serious lung disease, including pneumonia (< 1 month) Abnormal pulmonary function Acute myocardial infarction Congestive heart failure (< 1 month) History of inflammatory bowel disease Medical patient at bed rest Age 61-74 Arthroscopic surgery Major open surgery (> 45 min) Laparoscopic surgery (> 45 min) Malignancy Confined to bed (> 72 hours) Immobilizing plaster cast Central venous access Age >= 75 History of VTE Family history of VTE Factor V Leiden Prothrombin [id number] Lupus anticoagulant Anticardiolipin antibodies Elevated serum homocysteine Heparin-induced thrombocytopenia Other congenital or acquired thrombophilia Stroke (< 1 month) Elective arthroplasty Hip, pelvis, or leg fracture Acute spinal cord injury (< 1 month) Prophylaxis Regimen: Total Risk Factor Score Risk Level Prophylaxis Regimen 0-1 Low Early ambulation 2 Moderate Order ONE of the following: *Sequential Compression Device (SCD) *Heparin 5000 units SQ BID 3-4 Higher Order ONE of the following medications: *Heparin 5000 units SQ TID *Enoxaparin/Lovenox 40 mg SQ daily (WT < 150 kg, CrCl > 30 mL/min) *Enoxaparin/Lovenox 30 mg SQ daily (WT < 150 kg, CrCl > 10-29 mL/min) *Enoxaparin/Lovenox 30 mg SQ BID (WT < 150 kg, CrCl > 30 mL/min) AND/OR *Sequential Compression Device (SCD) 5 or more Highest Order ONE of the following medications: *Heparin 5000 units SQ TID (Preferred with Epidurals) *Enoxaparin/Lovenox 40 mg SQ daily (WT < 150 kg, CrCl > 30 mL/min) *Enoxaparin/Lovenox 30 mg SQ daily (WT < 150 kg, CrCl > 10-29 mL/min) *Enoxaparin/Lovenox 30 mg SQ BID (WT < 150 kg, CrCl > 30 mL/min) AND *Sequential Compression Device (SCD) Assessment and Plan Plan 73-year-old female with GI bleed Consult gastroenterology for evaluation for colonoscopy Currently on PPI drip and continue with serial H&H monitoring Hold aspirin however will continue Brilinta secondary to recent WALE to LAD Normochromic normocytic anemia H&H on admission 9.3/28.5 down from 11.1/34.4 on June 19, 2018, secondary to above acute GI bleed Check iron study Serial H&H monitoring and transfuse for hemoglobin less than 7 s/p WALE to LAD Continue Brilinta however will hold aspirin Secondary to marginal BP, patient is not on any beta-marissa or ELLIE inhibitor DVT prophylaxis: Chemical antiplatelet is contraindicated GI prophylaxis: PPI H&P: Quality VTE Deep Vein Thrombosis/Pulmonary Embolism Present on Admission: No
[2018-08-04] MEDS ORDERED: Umeclindinium 62.5 MCG/Vilanterol 25 MCG Inhaler INH SCH (16:00)
[2018-08-04] MEDS: Umeclindinium 62.5 MCG/Vilanterol 25 MCG Inhaler INH SCH (17:38)
[2018-08-04 20:14] LABS: Hemoglobin 8.8 gm/dL (11.6-15.3)
[2018-08-04 21:58] LABS: % Iron Saturation 11.8 % (20-50)
[2018-08-05 04:36] LABS: Hematocrit 25.3 % (35.0-46.0); Hemoglobin 8.2 gm/dL (11.6-15.3)
[2018-08-05] MEDS ORDERED: Acetaminophen 325 MG Tablet PO PRN (11:24)
--- NOTE | 2018-08-05 11:24 | P.PNIM ---
Subjective Interval history: Follow-up acute GI bleed August 05, 2018patient seen and examined, she had one episode of bloody stool. H&H dropping since admission down to 8.2/25.3. Physical Exam Vital signs: Vital Signs 08/04/18 16:00 08/04/18 20:00 08/05/18 00:00 Temperature 96.7 F L 96.0 F L 98.3 F Pulse Rate 91 H 83 84 Respiratory Rate 16 16 18 Blood Pressure 97/50 L 103/49 L 103/52 L Pulse Oximetry 96 96 95 08/05/18 04:00 08/05/18 08:00 Temperature 98.0 F 96.6 F L Pulse Rate 80 86 Respiratory Rate 16 24 Blood Pressure 100/53 L 116/55 L Pulse Oximetry 96 98 Intake & Output 08/04/18 08/05/18 08/05/18 18:59 06:59 18:59 Intake Total 1720 / 1720 100 / 100 Balance 1720 / 1720 100 / 100 Weight 52 kg 56.1 kg Intake: IV 1000 / 1000 100 / 100 Protonix Inj 80 MG In NS Inj 100 / 100 100 ML @ 10 mls/hr IV.CONT CONT [facility] Rx#:[id number] NS Inj 1,000 ML @ Wide Open IV. 1000 / 1000 SIG BOLUS ONE Rx#:[id number] Oral 720 / 720 Other: # Voids 3 2 Date of Last Bowel Movement 08/03/18 08/05/18 # Bowel Movements 0 1 Narrative: GENERAL: NAD SKIN: Warm and dry. HEAD: Atraumatic. Normocephalic. EYES: Pupils equal and round. No scleral icterus. No injection or drainage. ENT: No nasal bleeding or discharge. Mucous membranes pink and moist. NECK: Trachea midline. No JVD. CARDIOVASCULAR: Regular rate and rhythm. RESPIRATORY: No accessory muscle use. Clear to auscultation. Breath sounds equal bilaterally. GASTROINTESTINAL: Abdomen soft, non-tender, nondistended. Hepatic and splenic margins not palpable. MUSCULOSKELETAL: Extremities without clubbing, cyanosis, or edema. No obvious deformities. NEUROLOGICAL: Awake and alert. No obvious cranial nerve deficits. Motor grossly within normal limits. Five out of 5 muscle strength in the arms and legs. Normal speech. PSYCHIATRIC: Appropriate mood and affect; insight and judgment normal. Results Labs CBC & Chem 7: 08/05/18 04:16 08/04/18 10:15 Imaging Imaging: Impressions Abdomen/Pelvis CT 08/04/18 10:10 CONCLUSION: 1. Stable CT examination of the abdomen without interval acute abnormality. 2. Stable small left pleural effusion. 3. Stable 3 mm nonobstructing calyceal calculus in the superior pole of the right kidney. 4. Cholelithiasis. 5. Additional stable ancillary findings, as above. Assessment and Plan Plan 73-year-old female with GI bleed Consult gastroenterology for evaluation for colonoscopy Currently on PPI drip and continue with serial H&H monitoring Hold aspirin/Brilinta Anemia of acute GI loss H&H down to 8.2/25.3, will transfuse 1 unit packed red blood cell today August 05, 2018 Serial H&H monitoring s/p WALE to LAD Secondary to acute GI bleed, both Brilinta and aspirin on hold Secondary to marginal BP, patient is not on any beta-marissa or ELLIE inhibitor DVT prophylaxis: Chemical antiplatelet is contraindicated GI prophylaxis: PPI Change to inpatient admission secondary to H&H dropping from admission down to 8.2/25.3 and patient requiring blood transfusions. Also due to the fact that Brilinta and aspirin have to be on hold time 2 days patient will have colonoscopy on August 06, 2018. Progress Note: Quality VTE Deep Vein Thrombosis/Pulmonary Embolism Present on Admission: No
[2018-08-05] MEDS ORDERED: Sodium Chlor 0.9% Inj 250 ML IV.SIG SCH (12:00)
[2018-08-05 12:54] LABS: Hemoglobin 9.5 gm/dL (11.6-15.3)
[2018-08-05] MEDS ORDERED: PEG 3350/E-Lyte Soln 4000 ML Bottle PO ONE (13:05)
--- NOTE | 2018-08-05 14:27 | MB ---
cc: Christine Denton MD DATE: 08/05/2018 REASON FOR CONSULTATION: Hematochezia with anemia. History of Crohn disease. HISTORY OF PRESENT ILLNESS: This patient is a 73-year-old lady with previous history of Crohn disease. She says she has not had a problem since 1984 with her Crohn disease. She has had multiple surgeries prior to that. She sees Dr. Rena Jesus, colorectal surgery here locally, for her colonoscopies. Last one was reported over 3 years ago, which was reported as normal per patient. She has recently had cardiac stent placement in June and has been taking aspirin and Brilinta since that time. At this time, she is still having some dark stools, but no abdominal pain. No hematemesis or hematochezia. PAST MEDICAL HISTORY: Cataracts, cancer of the adrenal gland, shingles, history of lung cancer, seizure disorder, anxiety disorder, aortic valvular disease, chronic kidney disease, COPD, Crohn disease, hypertension. PAST SURGICAL HISTORY: Brain surgery, hand surgery, hysterectomy, carpal tunnel surgery, recent coronary stent placement as well as previous colonoscopy over 3 years ago. SOCIAL HISTORY: No tobacco, no alcohol at this time. MEDICATIONS: 1. Aspirin. 2. Vitamin B12. 3. Diltiazem. 4. Furosemide. 5. Lamotrigine. 6. Magnesium oxide. 7. Nitroglycerin. 8. Brilinta. Brilinta and aspirin are currently on hold. PHYSICAL EXAMINATION: GENERAL: Reveals a well-nourished lady in no apparent distress. VITAL SIGNS: Stable. HEAD AND NECK: Anicteric sclerae. LUNGS: Bilateral air entry with rales. ABDOMEN: Soft, nontender. No hepatosplenomegaly. Bowel sounds are present. CENTRAL NERVOUS SYSTEM: Nonfocal. RECTAL: Deferred at this time. LABORATORY DATA: Reveal hemoglobin of 9.5. INR is 1. Creatinine 1.3. IMPRESSION: Gastrointestinal bleeding suggestive of lower GI bleeding. RECOMMENDATIONS: Colonoscopy. PLAN: Discussed with the patient. This is planned for tomorrow and GoLYTELY prep will be used. Continue to monitor labs. Liquid diet today, n.p.o. after midnight. Further recommendations to follow. Thank you for this referral. This has been discussed with Dr. Zimmer. MD Nilsa Mora , 01:09 PM , 01:16 PM
[2018-08-05] MEDS: Umeclindinium 62.5 MCG/Vilanterol 25 MCG Inhaler INH SCH (18:37)
[2018-08-05 20:30] LABS: Hematocrit 33.3 % (35.0-46.0); Hemoglobin 10.8 gm/dL (11.6-15.3)
[2018-08-06 06:16] LABS: Baso % (Auto) 0.2 % (0.0-2.0); Eos % (Auto) 0.9 % (0.0-4.0); Hematocrit 30.6 % (35.0-46.0); Hemoglobin 10.1 gm/dL (11.6-15.3); Lymph # (Auto) 1.5 th/mm3 (1.0-4.8); Lymph % (Auto) 30.2 % (9.0-44.0); Mean Corpuscular HGB Conc 32.9 % (32.0-36.0); Mean Corpuscular Hemoglobin 31.4 pg (27.0-34.0); Mean Corpuscular Volume 95.4 fL (80.0-100.0); Mono # (Auto) 0.3 th/mm3 (0.0-0.9); Mono % (Auto) 5.7 % (0.0-8.0); Neut # (Auto) 3.3 th/mm3 (1.8-7.7); Platelet Count 288 th/mm3 (150-450); Red Blood Count 3.21 mil/mm3 (4.00-5.30); Red Cell Distribution Width 17.9 % (11.6-17.2); White Blood Count 5.1 th/mm3 (4.0-11.0)
[2018-08-06 06:23] LABS: Chloride 113 meq/L (98-107); Potassium 4.1 meq/L (3.5-5.1); Sodium 144 meq/L (136-145)
[2018-08-06 06:29] LABS: Calcium 8.3 mg/dL (8.5-10.1)
[2018-08-06 06:30] LABS: Albumin 2.7 g/dL (3.4-5.0); Anion Gap 8 meq/L (5-15); Blood Urea Nitrogen 11 mg/dL (7-18); Carbon Dioxide 22.7 meq/L (21.0-32.0); Glucose,Random 77 mg/dL (74-106)
[2018-08-06 06:33] LABS: Alanine Aminotransferase 17 U/L (10-53); Aspartate Aminotransferase 18 U/L (15-37); Glomerular Filtration Rate 48 mL/min (>89)
[2018-08-06 06:35] LABS: Total Protein 5.8 g/dL (6.4-8.2)
[2018-08-06 06:36] LABS: Alkaline Phosphatase 73 U/L (45-117)
[2018-08-06] MEDS: Umeclindinium 62.5 MCG/Vilanterol 25 MCG Inhaler INH SCH ×2 (08:09)
[2018-08-06] MEDS ORDERED: Chlorhexidine Gluconate 2% 1 Pack (2 Cloths) TOPICAL ONE (14:26)
[2018-08-06] MEDS ORDERED: Metoprolol Tartrate 25 MG Tablet PO ONE (14:26)
[2018-08-06] MEDS ORDERED: Sodium Chlor 0.9% Inj 500 ML IV.SIG SCH (15:00)
[2018-08-06] MEDS ORDERED: Lidocaine PF 1% Inj 5 ML Syringe INFILTRATN ONE (15:30)
--- NOTE | 2018-08-06 16:31 | GIPROC ---
[address], [address] COLONOSCOPY PROCEDURE REPORT EXAM DATE: 08/06/2018 PATIENT NAME: Tigist Fisher MR #: [id number] BIRTHDATE: 1945 ENDOSCOPIST: Christine Denton MD ORDER #: [id number] ADJUNCT PHYSICS INSTRUCTOR: Noemi Prescott and Migdalia Small STATUS: inpatient INDICATIONS: The patient is a 73 yr old female here for a colonoscopy due to abdominal pain, an abnormal CT, and high risk patient with previously diagnosed Crohn's Disease PROCEDURE PERFORMED: Colonoscopy with biopsy MEDICATIONS: None and Per Anesthesia. PREP QUALITY: The [place] Bowel Prep Score was Right colon 3, Mid colon 2, and Left colon 2. Total = 7. ESTIMATED BLOOD LOSS: None CONSENT: The patient understands the risks and benefits of the procedure and understands that these risks include, but are not limited to: sedation, allergic reaction, infection, perforation and/or bleeding. Alternative means of evaluation and treatment include, among others: physical exam, x-rays, and/or surgical intervention. The patient elects to proceed with this endoscopic procedure. medical equipment was checked for proper function. Hand hygiene and appropriate measures for infection prevention was taken. After the risks, benefits and alternatives of the procedure were thoroughly explained, Informed consent was verified, confirmed and timeout was successfully executed by the treatment team. A digital exam revealed external hemorrhoids The Pentax [id number] endoscope was introduced through the anus and advanced to the cecum, which was identified by both the appendix and ileocecal valve. The instrument was then slowly withdrawn as the colon was fully examined. COLON FINDINGS: Mild diverticulosis was noted in the sigmoid colon. No bleeding was noted from the diverticulosis. A medium sized circumferential patch of abnormal mucosa was found in the terminal ileum. The mucosa was congested, erythematous and ulcerated. This was likely consistent with Crohn's disease. A biopsy was performed using cold forceps. A medium sized diffuse patch of abnormal mucosa was found in the ascending colon. The mucosa was erythematous, friable and ulcerated. This was likely consistent with Crohn's disease. A biopsy was performed using cold forceps. A small patch of colitis was found in the sigmoid colon. The mucosa was edematous and erythematous. This is consistent with Crohn's disease. A biopsy was performed using cold forceps. Retroflexed views revealed internal hemorrhoids and Retroflexed views revealed medium internal hemorrhoids The scope was then completely withdrawn from the patient and the procedure terminated. PROCEDURE WITHDRAWAL TIME:7minutes ADVERSE EVENTS: There were no complications. IMPRESSIONS: 1. Mild diverticulosis was noted in the sigmoid colon 2. Medium sized circumferential abnormal mucosa was found in the terminal ileum; The mucosa was congested, erythematous and ulcerated; biopsy was performed using cold forceps 3. Medium sized diffuse abnormal mucosa was found in the ascending colon; The mucosa was erythematous, friable and ulcerated; biopsy was performed using cold forceps 4. Small colitis was found in the sigmoid colon; The mucosa was edematous and erythematous; This is consistent with Crohn's disease.; biopsy was performed using cold forceps 5. Retroflexed views revealed internal hemorrhoids 6. Retroflexed views revealed medium internal hemorrhoids 7. Revealed external hemorrhoids RECOMMENDATIONS: 1. Await biopsy results. Biopsy results will not be ready for 7-10 days. If you don't hear from us in two weeks, call our office for results. 2. Yearly hemoccult 3. Asacol 800mg 1 po tid. Prednisone 20mg daily x 4 weeks. 4. Follow-up: [facility] 2 week(s) RECALL: Return 1 month Colonoscopy, pending biopsy results Christine Denton MD eSigned: Christine Denton MD 08/06/2018 4:30 PM cc: PATIENT NAME: Tigist Fisher MR#: [id number]
[2018-08-06] MEDS: Mesalamine 800 MG Tablet DR PO SCH (17:13)
[2018-08-06] MEDS: predniSONE 20 MG Tablet PO SCH (17:13)
--- NOTE | 2018-08-06 19:42 | P.PNIM ---
Subjective Interval history: 73-year-old female who is seen examined today for follow-up on rectal bleeding. Patient resting carefully. Just got back from having vascular performed. Patient denies any new complaints. States that she is hungry. Vital signs are stable. Patient remains afebrile. Physical Exam Vital signs: Vital Signs 08/05/18 20:00 08/06/18 00:00 08/06/18 08:00 Temperature 97.0 F L 97.1 F L 96.9 F L Pulse Rate 95 H 95 H 92 H Respiratory Rate 16 16 22 Blood Pressure 101/57 L 95/52 L 95/55 L Pulse Oximetry 94 L 97 97 08/06/18 12:00 08/06/18 14:17 08/06/18 16:30 Temperature 97.4 F L 97.4 F L 98.3 F Pulse Rate 98 H 98 H 96 H Respiratory Rate 22 22 16 Blood Pressure 100/54 L 100/34 L 89/43 L Pulse Oximetry 94 L 94 L 96 08/06/18 16:45 08/06/18 17:23 Temperature 97.6 F Pulse Rate 86 94 H Respiratory Rate 16 20 Blood Pressure 95/54 L 119/55 L Pulse Oximetry 94 L 95 Intake & Output 08/06/18 08/06/18 08/07/18 06:59 18:59 06:59 Intake Total 480 / 480 900 / 900 Balance 480 / 480 900 / 900 Weight 56.1 kg Intake: Oral 0 / 0 Oral Supplement 480 / 480 Anesthesia Amount 900 / 900 Other: # Voids 2 0 Narrative: GENERAL: Well-developed, well-nourished, in no acute distress. alert and orientated HEENT: Head is normocephalic without any lesions or masses noted. Facial features are symmetric. Eyes: Extraocular muscles are intact. Conjunctivae were clear. NECK: Supple without any masses. Trachea midline no deviation. No JVD, CARDIAC: Regular rhythm, regular rate. S1/S2 are heard. No murmurs gallops or rubs. LUNGS: Clear to auscultation bilaterally. No wheeze, rhonchi or rales. No use of accessory muscles on inspiration or expiration. ABDOMEN: Soft, nontender. Nondistended. Bowel sounds heard in all 4 quadrants. No organomegaly or masses. Negative rebound, negative guarding EXTREMITIES: No edema, pulses are equal bilaterally. No cyanosis or clubbing NEUROLOGY: Mood and affect appear appropriate. Cranial nerves II through XII grossly intact. Moving all extremities, speech is clear Results Labs CBC & Chem 7: 08/06/18 05:15 08/06/18 05:15 Assessment and Plan Plan Rectal bleed Likely secondary to Crohn's disease exacerbation Gastroenterology consulted for further recommendations Patient was started on Protonix IV, will discontinue at this time and start Protonix p.o. Patient did undergo colonoscopy which did show multiple areas of ulcerations and friable tissue consistent with Crohn's disease Gastroenterology recommended Asacol, prednisone and outpatient follow-up Aspirin and Brilinta were held, will need clearance from elevator service technician to resume Acute blood loss anemia from GI bleed Status post transfusion 1 unit packed red blood cell Hemoglobin has remained stable at this time Coronary artery disease status post drug-eluting stent to the LAD Resume aspirin Brilinta once cleared by elevator service technician Statin has been resumed Cardiology indicated may be able to start beta-marissa/ELLIE inhibitor in the future if blood pressure is permissive DVT prevention Sequential compression devices, avoid chemical prophylaxis secondary to GI bleed Discussed Condition With: Patient, nursing staff, Dr. Youngblood Discharge Planning: Anticipate discharge tomorrow if patient remains stable and cleared by gastroenterology Progress Note: Quality VTE Deep Vein Thrombosis/Pulmonary Embolism Present on Admission: No
[2018-08-07 00:12] VITALS: O2SAT 95
[2018-08-07 08:04] VITALS: PULSE 94; RESP 18
[2018-08-07] MEDS: Umeclindinium 62.5 MCG/Vilanterol 25 MCG Inhaler INH SCH (08:38)
[2018-08-07] MEDS: predniSONE 20 MG Tablet PO SCH (08:39)
[2018-08-07] MEDS: Mesalamine 800 MG Tablet DR PO SCH (09:43)
--- NOTE | 2018-08-07 11:27 | P.DS ---
Date of admission: 08/05/18 11:20 Primary care physician: Greg Dickinson MD Attending physician on discharge: Ousmane Youngblood Anticipated date of discharge: 08/07/18 Brief History from admission: 73 yrs female with a PMH of IBD, s/p WALE to LAD on 06/18/18 and currently on ASA/ Brilinta was brought to the ED for first time episode x2-3 of bloody stools since this AM. She denies any hemoptysis, hematuria or hematemesis. Patient states she had 3 GI surgeries 2/2 Crohn's disease Crohn's which were performed by Dr. Jesus, colorectal surgeon. H&H on admission was 9.3/28.5, patient currently on PPI drip. She has no chest pain or shortness of breath. DS: Diagnosis - Discharge Diagnosis (1) GI bleed Status: Acute DS: Summary Hospital Course: 73 yrs female with a PMH of IBD, s/p WALE to LAD on 06/18/18 was brought to the ED for first time episode with 2-3 episodes of bloody stools since Sunday AM. Pt required 1 unit of transfusion due to a hemoglobin of 8.2. GI was consulted and pt underwent an colonoscopy and found to have areas that were consistent with Crohn's disease. Started medical therapy with Asacol and prednisone. Pt had no bleeding since. Discussed with adult caregiver who indicated that pt can resume Brilinta and aspirin. Pt will follow up patient. - Time Spent with Patient Total time spent providing and/or coordinating discharge services: Greater than 30 minutes - Quality: VTE Deep Vein Thrombosis/Pulmonary Embolism Present on Admission: No Exam Vital signs: Vital Signs 08/06/18 12:00 08/06/18 14:17 08/06/18 16:30 Temperature 97.4 F L 97.4 F L 98.3 F Pulse Rate 98 H 98 H 96 H Respiratory Rate 22 22 16 Blood Pressure 100/54 L 100/34 L 89/43 L Pulse Oximetry 94 L 94 L 96 08/06/18 16:45 08/06/18 17:23 08/06/18 20:00 Temperature 97.6 F 96.9 F L Pulse Rate 86 94 H 69 Respiratory Rate 16 20 20 Blood Pressure 95/54 L 119/55 L 107/69 Pulse Oximetry 94 L 95 97 08/07/18 00:00 08/07/18 08:00 Temperature 96.3 F L 96.1 F L Pulse Rate 89 94 H Respiratory Rate 20 18 Blood Pressure 135/61 128/56 L Pulse Oximetry 95 95 Intake & Output 08/06/18 08/07/18 08/07/18 18:59 06:59 18:59 Intake Total 900 / 900 480 / 480 Balance 900 / 900 480 / 480 Intake: Oral 0 / 0 480 / 480 Anesthesia Amount 900 / 900 Other: # Voids 0 5 # Bowel Movements 4 Narrative: GENERAL: Well-developed, well-nourished female. Alert and oriented. SKIN: Warm and dry. HEAD: Normocephalic. EYES: No scleral icterus. No injection or drainage. NECK: Supple, trachea midline. No JVD or lymphadenopathy. CARDIOVASCULAR: Regular rate and rhythm without murmurs, gallops, or rubs. RESPIRATORY: Breath sounds equal bilaterally. No accessory muscle use. GASTROINTESTINAL: Abdomen soft, non-tender, nondistended. MUSCULOSKELETAL: No cyanosis, or edema. Results Procedures completed during hospitalization: Pt had an colonoscopy performed on 08/06/2018 which showed small colitis with edematous, erythematous mucosa found in the sigmoid colon; a medium sized circumferential patch of congested, erythematous, ulcerated mucosa, consistent with Crohn's was found in the terminal ileum; a medium sized diffuse patch of abnormal mucosa consistent with Crohn's was found in the ascending colon. All sites were biopsied and results are pending. Pending studies at discharge: Pending at discharge 08/06/18 08:13 Surgical [PTH] Routine - Impressions ITS Impressions Abdomen/Pelvis CT 08/04/18 10:10 CONCLUSION: 1. Stable CT examination of the abdomen without interval acute abnormality. 2. Stable small left pleural effusion. 3. Stable 3 mm nonobstructing calyceal calculus in the superior pole of the right kidney. 4. Cholelithiasis. 5. Additional stable ancillary findings, as above. Discharge Plan - Discharge Disposition Patient Disposition: 01 Discharge Home - Discharge Condition Condition: Stable - Discharge Order Discharge Orders: ED Use Only Admit Order (Routine); Ordered 08/04/18 Ordered By: Lia Blas - Discharge Details Anticipated Discharge Date: 08/07/18 - Physicians Team Primary Care Provider: Greg Dickinson Attending Provider: Ousmane Youngblood Other Providers: Antonio Caicedo MD ; [employer] - Discharge Interventions Interventions: Discharge Planning - Case Management Last Done: 08/05/18 12:33
[2018-08-07 11:42] VITALS: BP 133/57; TEMP 96.3
== END 2018-08-07 11:49 | disposition home or self-care (01) | DRG 386 ==
LOC: PHED 08:56 → INTOOBSV 13:09 → PHEDA 13:09 → PH3 14:26
PROVIDERS: ADMIT Hospitalist; ATTEND Hospitalist
PROC: COLONOS (2018-08-06 15:30)
CPT/HCPCS: 36430; 74177; 80053; 82728; 83540; 83550; 85014; 85018; 85025; 85610; 85730; 86078; 86850; 86880; 86900; 86901; 86923; 88305; 90761; 90765; 90766; 90775; 96361; 96365; 96366; 96375; 99285; C9113; J1200; J2704; J7030; J7050; J7120; J7506; J7512; P9016; Q9967